=== PATIENT | male | born 1990 | race Caucasian/White ===

== ENCOUNTER 2017-03-11 08:17 | Inpatient (IN) | payer OTHER ==
[2017-03-11 09:57] VITALS: BMI 26.6
--- NOTE | 2017-03-11 11:26 | HP ---
COWS - Scale Resting Pulse: 0= [place] 80 or Below Sweatin= Chills/Flushing Restless Observation: 3= Extraneous Movement Pupil Size: 2= Moderately Dilated Bone or Joint Aches: 4=Acute Joint/Muscle Pain Runny Nose/ Eye Tearin= Runny Nose/Eyes GI Upset > 30mins: 2= Nausea/Diarrhea (NAUSEA/VOMITING) Tremor Observation: 2= Slight Tremor Visible Yawning Observation: 1= 1-2x During Session Anxiety or Irritability: 2=Irritable/Anxious Goose Flesh Skin: 0=Smooth Skin COWS Score: 19 CIWA Score - CIWA Score Nausea/Vomitin-Int. Nausea w/Dry Heave Muscle Tremors: 4-Moderate,w/Arms Extend Anxiety: 4-Mod. Anxious/Guarded Agitation: 3 Paroxysmal Sweats: 1-Minimal Palms Moist Orientation: 0-Oriented Tacttile Disturbances: 3-Moderate Itch/Numb/Burn Auditory Disturbances: 0-None Visual Disturbances: 0-None Headache: 0-None Present CIWA-Ar Total Score: 19 Admission [facility] Chief Complaint: DETOX TX FOR HEROIN,XANAX/KLONOPIN, AND ALCOHOL DEPENDENCE. Allergies/Adverse Reactions: Allergies Allergy/AdvReac Type Severity Reaction Status Date / Time No Known Allergies Allergy Verified 03/11/17 10:06 History of Present Illness: 26 Y/O MALE WITH A HX OF HEROIN,BENZOS,ALCOHOL DEPENDENCE AND SPORADIC USE OF COCAINE AND PCP SEEKING DETOX TX. PT HAS PREVIOUS EPISODES OF DRUG TREATMENT AND RECENTLY RELAPSED ABOUT A MONTH AGO AFTER INCARCERATED X ONE AND HALF YRS AND OUT LAST SEPTEMBER. ON PROBATION. Exam Limitations: No Limitations - Ebola screening Have you traveled outside of the country in the last 21 days: No Have you had contact with anyone from an Ebola affected area: No Have you been sick,other than usual withdrawal symptoms: No Do you have a fever: No - Review of Systems Constitutional: Chills, Loss of Appetite, Night Sweats, Changes in sleep EENT: reports: Blurred Vision, Tearing, Nose Congestion Respiratory: reports: Shortness of Breath, Wheezing Cardiac: reports: Lightheadedness GI: reports: Constipated, Diarrhea, Nausea, Poor Appetite, Vomiting, Indigestion , Abdominal cramping : reports: No Symptoms Reported Musculoskeletal: reports: Back Pain, Joint Pain, Muscle Pain Integumentary: reports: Bruising (RIGHT HAND WITH IVD INJ SITES) Neuro: reports: Headache, Tremors, Unsteady Gait, Dizziness Endocrine: reports: No Symptoms Reported Hematology: reports: No Symptoms Reported Psychiatric: reports: Orientated x3, Anxious, Depressed Other Systems: Reviewed and Negative Patient History - Patient Medical History Hx Anemia: No Hx Asthma: Yes (ON MDI) Hx Chronic Obstructive Pulmonary Disease (COPD): No Hx Cancer: No Hx Cardiac Disorders: No Hx Congestive Heart Failure: No Hx Hypertension: No Hx Hypercholesterolemia: No Hx Pacemaker: No HX Cerebrovascular Accident: No Hx Seizures: No Hx Dementia: No Hx Diabetes: No Hx Gastrointestinal Disorders: No Hx Liver Disease: No Hx Genitourinary Disorders: No Hx Sexually Transmitted Disorders: No Hx Renal Disease (ESRD): No Hx Thyroid Disease: No Hx Human Immunodeficiency Virus (HIV): No (NEGATIVE HX) Hx Hepatitis C: No (DENIES) Hx Depression: Yes (NO CURRENT MED) Hx Suicide Attempt: No Hx Bipolar Disorder: No Hx Schizophrenia: No - Patient Surgical History Past Surgical History: No Hx Neurologic Surgery: No Hx Cataract Extraction: No Hx Cardiac Surgery: No Hx Lung Surgery: No Hx Breast Surgery: No Hx Breast Biopsy: No Hx Abdominal Surgery: No Hx Appendectomy: No Hx Cholecystectomy: No Hx Genitourinary Surgery: No Hx Orthopedic Surgery: No Anesthesia Reaction: No - PPD History Previous Implant?: Yes Documented Results: Negative w/proof Implanted On Prior [facility] Admission?: Yes Date: 08/20/15 Results: 0 mm PPD to be Administered?: Yes - Reproductive History Patient is a Female of Child Bearing Age (11 -55 yrs old): No (MALE) - Smoking Cessation Smoking history: Current every day smoker Have you smoked in the past 12 months: Yes Aproximately how many cigarettes per day: 10 Cigars Per Day: 10 Hx Chewing Tobacco Use: No Initiated information on smoking cessation: Yes 'Breaking Loose' booklet given: 03/11/17 - Substance & Tx. History Hx Alcohol Use: Yes (BEER/VODKA) Hx Substance Use: Yes (KLONOPIN/XANAX/HEROIN/(SPORADIC COCAINE AND PCP USE)) Substance Use Type: Alcohol, Cocaine (USED 1-2 TMES RECENTLY.), Heroin, Tranquilizers Hx Substance Use Treatment: Yes (LAST DETOX AT [facility]) - Substances Abused Heroin Route: Injection Frequency: Daily Amount used: 25 bags Age of first use: 17 Date of Last Use: 03/10/17 Alcohol-beer/vodka Route: Oral Frequency: Daily Amount used: 1-6 pk./1 pt. Age of first use: 8 Date of Last Use: 03/10/17 Klonopin or Xanax Route: Oral Frequency: Daily Amount used: 2-4 mg/. Age of first use: 24 Date of Last Use: 03/10/17 PCP Route: Smoking Frequency: 3-6 times per week (2-3 X /WEEK) Amount used: 3 BAGS Age of first use: 15 Date of Last Use: 03/08/17 Family Disease History - Family Disease History Family Disease History: Heart Disease: Grandparent (BOTH SIDES-), Respiratory: Grandparent, Other: Grandparent, Father (HTN), Mother (PARKINSON'S DISEASE) Admission Physical Exam [facility] - Vital Signs Vital Signs: Vital Signs - 24 hr 03/11/17 09:53 Temperature 96.6 F L Pulse Rate 74 Respiratory 18 Rate Blood Pressure 143/91 - Physical General Appearance: Yes: Moderate Distress, Irritable, Anxious HEENTM: Yes: EOMI, Normocephalic, TEGAN, Pharynx Normal, Nasal Congestion, Rhinorrhea Respiratory: Yes: Chest Non-Tender, Lungs Clear, Normal Breath Sounds, No Respiratory Distress Neck: Yes: Supple, Trachea in good position Breast: Yes: Breast Exam Deferred Cardiology: Yes: Regular Rhythm, Regular Rate, S1, S2 Abdominal: Yes: Normal Bowel Sounds, Non Tender, Soft Genitourinary: Yes: Other (N/C) Back: Yes: Within Normal Limits Musculoskeletal: Yes: Joint swelling (SLIGHT SSWELLING LEFT KNEE. AROM- NO DIFFICULTY.) Extremities: Yes: Normal Range of Motion, Non-Tender, Tremors Neurological: Yes: hand heel seat fitter II-XII NML intact, Fully Oriented, Alert, Motor Strength 5/5 Integumentary: Yes: Dry, Warm, Track [place] (HEALED IVD INJ SITE ON RIGHT HAND) - Diagnostic (1) Nicotine dependence Current Visit: Yes Status: Acute Qualifiers: Nicotine product type: cigarettes Substance use status: in withdrawal Qualified Code(s): F17.213 - Nicotine dependence, cigarettes, with withdrawal (2) Opioid dependence with withdrawal Current Visit: Yes Status: Acute (3) PCP dependence Current Visit: Yes Status: Acute (4) Alcohol dependence with uncomplicated withdrawal Current Visit: Yes Status: Acute (5) Sedative, hypnotic or anxiolytic dependence with withdrawal, uncomplicated Current Visit: Yes Status: Acute (6) Cocaine abuse Current Visit: Yes Status: Acute (7) Asthma Current Visit: Yes Status: Chronic Qualifiers: Asthma complication type: uncomplicated Cleared for Admission S - Detox or Rehab [facility] Level of Care: Medically Managed Detox Regimen/Protocol: Methadone/Librium [facility] Breath Alcohol Content Breath Alcohol Content: 0 Urine Drug Screen - Results Drug Screen Negative: No Urine Drug Screen Results: ROC-Cocaine, OPI-Opiates, PCP-Phencyclidine, BZO- Benzodiazepines, OXY-Oxycodone
[2017-03-11] MEDS ORDERED: NICOTINE POLACRILEX 2 MG GUM BUC PRN (11:49)
[2017-03-11] MEDS ORDERED: P-EPHED 60MG/TRIPROLIDI 2.5MG TABLET PO PRN (11:49)
[2017-03-11] MEDS ORDERED: guaiFENesin/D-METHORPHAN HB 10 ML UNIT-DOSE CUPS PO PRN (11:49)
[2017-03-11] MEDS ORDERED: IBUPROFEN 400 MG TABLET (FP) PO PRN (11:49)
[2017-03-11] MEDS ORDERED: MAGNESIUM HYDROX 2400MG/30ML ORAL SUSPENSION 30 ML CUP PO PRN (11:49)
[2017-03-11] MEDS ORDERED: MAGNESIUM CITRATE 300 ML BOTTLE PO PRN (11:49)
[2017-03-11] MEDS ORDERED: MENTHOL/PHENOL 1 EACH UD MM PRN (11:49)
[2017-03-11] MEDS ORDERED: ACETAMINOPHEN 325 MG TABLET (FP) PO PRN (11:49)
[2017-03-11] MEDS ORDERED: LOPERAMIDE HCL 2 MG CAPSULE PO PRN (11:49)
[2017-03-11] MEDS ORDERED: MAG HYDROX/AL HYDROX/SIMETH 30 ML UNIT-DOSE CUP PO PRN (11:49)
[2017-03-11] MEDS ORDERED: METHADONE HCL 10 MG TABLET (FOR DETOX USE ONLY) PO ONE ×2 (12:18→23:00)
--- NOTE | 2017-03-11 12:34 | CONSULT ---
[facility] Psychiatric Consult - Data Date of interview: 03/11/17 Admission source: [facility] Identifying data: Readmission to [facility] for this 26 y/o male seeking detox treatment for alcohol,benzodiazepine,heroin,cocaine and phencyclidine dependence.Patient is single without children,domiciled and reportedly self-employed. Substance Abuse History: - Smoking Cessation. Smoking history: Current every day smoker. Have you smoked in the past 12 months: Yes. Aproximately how many cigarettes per day: 10. Cigars Per Day: 10. Hx Chewing Tobacco Use: No. Initiated information on smoking cessation: Yes. 'Breaking Loose' booklet given : 03/11/17. - Substance & Tx. History. Hx Alcohol Use: Yes (BEER/VODKA). Hx Substance Use: Yes (KLONOPIN/XANAX/HEROIN/(SPORADIC COCAINE AND PCP)). Substance Use Type: Alcohol, Cocaine (RECENTLY USED 1/5TH GRAM X 1 ON 03/10/17 "WITH THIS RELAPSE".), Heroin, Tranquilizers. Hx Substance Use Treatment: Yes ( LAST DETOX AT [facility]). - Substances Abused. Heroin. Route: Injection. Frequency: Daily. Amount used: 25 bags. Age of first use: 17. Date of Last Use: 03/10/17. Alcohol-beer/vodka. Route: Oral. Frequency: Daily. Amount used: 1-6 pk./1 pt. Age of first use: 8. Date of Last Use: 03/10/17. Klonopin or Xanax. Route: Oral. Frequency: Daily. Amount used: 2-4 mg/. Age of first use: 24. Date of Last Use: 03/10/17. PCP. Route: Smoking. Frequency: 3-6 times per week (2-3 X /WEEK). Amount used: 3 BAGS. Age of first use: 15. Date of Last Use: 03/08/17. Confirmed by patient. Medical History: Bronchial asthma. Psychiatric History: Patient denies. Physical/Sexual Abuse/Trauma History: Patient denies. Additional Comment: Urine Drug Screen Results: ROC-Cocaine, OPI-Opiates, PCP- Phencyclidine, BZO-Benzodiazepines, OXY-Oxycodone.Noted. Mental Status Exam - Mental Status Exam Alert and Oriented to: Time, Place, Person Cognitive Function: Good Patient Appearance: Well Groomed Mood: Hopeful, Euthymic Affect: Normal Range Patient Behavior: Fatigued, Appropriate, Cooperative Speech Pattern: Clear Voice Loudness: Normal Thought Process: Goal Oriented Thought Disorder: Not Present Hallucinations: Denies Suicidal Ideation: Denies Homicidal Ideation: Denies Insight/Judgement: Poor Sleep: Fair Appetite: Good Muscle strength/Tone: Normal Gait/Station: Normal Psychiatric Findings - Problem List ([place] 1, 2,3) (1) Alcohol dependence with uncomplicated withdrawal Current Visit: Yes Status: Acute (2) Opioid dependence with withdrawal Current Visit: Yes Status: Acute (3) Sedative, hypnotic or anxiolytic dependence with withdrawal, uncomplicated Current Visit: Yes Status: Acute (4) PCP dependence Current Visit: Yes Status: Acute (5) Nicotine dependence Current Visit: Yes Status: Acute Qualifiers: Nicotine product type: cigarettes Substance use status: in withdrawal Qualified Code(s): F17.213 - Nicotine dependence, cigarettes, with withdrawal (6) Cocaine abuse Current Visit: Yes Status: Acute (7) Asthma Current Visit: Yes Status: Chronic Qualifiers: Asthma complication type: uncomplicated (8) Insomnia Current Visit: Yes Status: Acute - Initial Treatment Plan Initial Treatment Plan: Psychoeducation.Detoxification is in progress.Insomnia is addressed with benadryl 50 mg po hs prn.Side effects/benefits discussed with the patient.He is in agreement with this plan of care.Observation.
[2017-03-11] MEDS: NICOTINE 14 MG/24 HOURS TOPICAL PATCH TD SCH (12:39)
[2017-03-11] MEDS: chlordiazePOXIDE HCL 25 MG CAPSULE PO PRN (12:40)
--- NOTE | 2017-03-11 14:10 | EKG ---
Test Reason : Blood Pressure : / mmHG Vent. Rate : 052 BPM Atrial Rate : 052 BPM P-R Int : 150 ms QRS Dur : 096 ms QT Int : 450 ms P-R-T Axes : 061 081 034 degrees QTc Int : 418 ms SINUS BRADYCARDIA RSR' OR QR PATTERN IN V1 SUGGESTS RIGHT VENTRICULAR CONDUCTION DELAY BORDERLINE ECG NO PREVIOUS ECGS AVAILABLE Confirmed by JERI PEDROZA MD ([id number]) on 03/11/2017 2:10:08 PM Referred By: Confirmed By:JERI PEDROZA MD
[2017-03-11] MEDS: chlordiazePOXIDE HCL 25 MG CAPSULE PO SCH ×2 (17:30→22:20)
[2017-03-11 17:32] LABS: URINE APPEARANCE SLCLOUDY; URINE BILIRUBIN NEGATIVE (NEGATIVE); URINE BLOOD NEGATIVE (NEGATIVE); URINE COLOR YELLOW; URINE GLUCOSE (UA) NEGATIVE (NEGATIVE); URINE KETONE NEGATIVE (NEGATIVE); URINE LEUK ESTERASE NEGATIVE (NEGATIVE); URINE NITRITE NEGATIVE (NEGATIVE); URINE PROTEIN NEGATIVE (NEGATIVE); URINE UROBILINOGEN NEGATIVE E.U./dl (0.2-1.0)
[2017-03-11] MEDS: THIAMINE HCL 100 MG TABLET (FP) PO SCH (22:20)
[2017-03-11] MEDS: diphenhydrAMINE HCL 50 MG CAPSULE PO PRN (22:20)
[2017-03-12] MEDS: chlordiazePOXIDE HCL 25 MG CAPSULE PO SCH ×4 (05:39→22:17)
[2017-03-12] MEDS ORDERED: METHADONE HCL 10 MG TABLET (FOR DETOX USE ONLY) PO SCH (10:00)
--- NOTE | 2017-03-12 10:20 | PN ---
[facility] CIWA - CIWA Score Nausea/Vomitin-Mild Nausea/No Vomiting Muscle Tremors: 4-Moderate,w/Arms Extend Anxiety: 4-Mod. Anxious/Guarded Agitation: 3 Paroxysmal Sweats: 3 Orientation: 0-Oriented Tacttile Disturbances: 0-None Auditory Disturbances: 0-None Visual Disturbances: 0-None Headache: 0-None Present CIWA-Ar Total Score: 15 [facility] COWS - Scale Resting Pulse: 0= [place] 80 or Below Sweatin=Flushed/Facial Moisture Restless Observation: 1= Difficult to Sit Still Pupil Size: 0= Normal to Room Light Bone or Joint Aches: 1= Mild Discomfort Runny Nose/ Eye Tearin= Runny Nose/Eyes GI Upset > 30mins: 2= Nausea/Diarrhea Tremor Observation of Outstretched Hands: 2= Slight Tremor Visible Yawning Observation: 1= 1-2x During Session Anxiety or Irritability: 2=Irritable/Anxious Goose Flesh Skin: 0=Smooth Skin COWS Score: 13 [facility] Progress Note (SOAP) Subjective: Nausea,tremors,anxiety,sweating,interrupted sleep,restless,muscle aches/spasm Objective: 03/12/17 10:19 Vital Signs - 8 hr 03/12/17 03/12/17 03/12/17 03:30 06:12 09:18 Temperature 96.1 F L 96.6 F L Pulse Rate 46 L 60 Respiratory 18 16 18 Rate Blood Pressure 116/80 112/62 Laboratory Last Values WBC Cancelled 03/12/17 06:00 Corrected WBC (auto) Cancelled 03/12/17 06:00 RBC Cancelled 03/12/17 06:00 Hgb Cancelled 03/12/17 06:00 Hct Cancelled 03/12/17 06:00 MCV Cancelled 03/12/17 06:00 MCHC Cancelled 03/12/17 06:00 RDW Cancelled 03/12/17 06:00 Plt Count Cancelled 03/12/17 06:00 MPV Cancelled 03/12/17 06:00 Differential Comment Cancelled 03/12/17 06:00 Platelet Estimate Cancelled 03/12/17 06:00 Platelet Comment Cancelled 03/12/17 06:00 Platelet Comment Cancelled 03/12/17 06:00 RBC Morphology Cancelled 03/12/17 06:00 Urine Color Yellow 03/11/17 15:00 Urine Appearance Slcloudy 03/11/17 15:00 Urine pH 7.0 (5.0-8.0) 03/11/17 15:00 Ur Specific [place] 1.020 (1.005-1.025) 03/11/17 15:00 Urine Protein Negative (NEGATIVE) 03/11/17 15:00 Urine Glucose (UA) Negative (NEGATIVE) 03/11/17 15:00 Urine Ketones Negative (NEGATIVE) 03/11/17 15:00 Urine Blood Negative (NEGATIVE) 03/11/17 15:00 Urine Nitrite Negative (NEGATIVE) 03/11/17 15:00 Urine Bilirubin Negative (NEGATIVE) 03/11/17 15:00 Urine Urobilinogen Negative E.U./dl (0.2-1.0) 03/11/17 15:00 Ur Leukocyte Esterase Negative (NEGATIVE) 03/11/17 15:00 u/a noted Assessment: 03/12/17 10:20 Withdrawal sx. Plan: Continue detox
[2017-03-12] MEDS: NICOTINE 14 MG/24 HOURS TOPICAL PATCH TD SCH (10:31)
[2017-03-12] MEDS: PRENATAL VITAMINS W/ FOLIC ACID TABLET (FP) PO SCH (10:32)
[2017-03-12 11:02] LABS: ALK PHOS 72 U/L (45-117); ANION GAP 12 (8-16); BILIRUBIN,TOTAL 0.6 mg/dL (0.2-1.0); CO2 25 mmol/L (21-32); COCKROFT - GAULT 133.27; CREATININE 0.9 mg/dL (0.7-1.3); GLUCOSE,RANDOM 120 mg/dL (74-106); SGOT/AST 27 U/L (15-37); SGPT/ALT 27 U/L (12-78); TOT PROT 7.1 g/dl (6.4-8.2)
[2017-03-12 12:10] LABS: HIV 1 & 2 AB NEGATIVE; HIV 1 AGp24 NEGATIVE
[2017-03-12] MEDS: chlordiazePOXIDE HCL 25 MG CAPSULE PO PRN (14:45)
[2017-03-12] MEDS: THIAMINE HCL 100 MG TABLET (FP) PO SCH (22:17)
[2017-03-12] MEDS: diphenhydrAMINE HCL 50 MG CAPSULE PO PRN (22:17)
[2017-03-13] MEDS: chlordiazePOXIDE HCL 25 MG CAPSULE PO SCH ×2 (05:55→10:24)
[2017-03-13 09:58] LABS: BASOPHIL 0.6 % (0-2.0); EOSINOPHIL 5.5 % (0-4.5); MCHC 34.2 g/dl (32.0-35.9); NEUTROPHILS 53.7 % (42.8-82.8); PLATELET COUNT 214 K/MM3 (134-434); RDW 12.3 % (11.9-15.9); WHITE BLOOD COUNT 6.2 K/mm3 (4.0-10.0)
[2017-03-13] MEDS: PRENATAL VITAMINS W/ FOLIC ACID TABLET (FP) PO SCH (10:24)
[2017-03-13] MEDS: METHADONE HCL 5 MG TABLET (FOR DETOX USE ONLY) PO SCH (10:24)
[2017-03-13] MEDS: NICOTINE 14 MG/24 HOURS TOPICAL PATCH TD SCH (10:24)
--- NOTE | 2017-03-13 12:00 | PN ---
[facility] CIWA - CIWA Score Nausea/Vomitin-Mild Nausea/No Vomiting Muscle Tremors: 2 Anxiety: 0-No Anxiety, at Ease Agitation: 1-Slight > Activity Paroxysmal Sweats: 3 Orientation: 0-Oriented Tacttile Disturbances: 3-Moderate Itch/Numb/Burn Auditory Disturbances: 2-Mild Harshness/Frighten Visual Disturbances: 3-Moderate Sensitivity Headache: 0-None Present CIWA-Ar Total Score: 15 [facility] Progress Note (SOAP) Subjective: Diarrhea, Interrupted sleep, Chills, Sweating, Tremors, Lower Back Ache. Objective: PT. A & OX 3. NO ACUTE DISTRESS. 03/13/17 11:57 Vital Signs Temperature 97.6 F 03/13/17 09:21 Pulse Rate 69 03/13/17 09:21 Respiratory Rate 18 03/13/17 09:21 Blood Pressure 130/78 03/13/17 09:21 O2 Sat by Pulse Oximetry (%) Laboratory Tests 03/11/17 03/11/17 03/12/17 06:00 15:00 06:00 WBC Cancelled Corrected WBC (auto) Cancelled RBC Cancelled Hgb Cancelled Hct Cancelled MCV Cancelled MCHC Cancelled RDW Cancelled Plt Count Cancelled MPV Cancelled Neutrophils % Lymphocytes % Monocytes % Eosinophils % Basophils % Differential Comment Cancelled Platelet Estimate Cancelled Platelet Comment Cancelled RBC Morphology Cancelled Sodium Potassium Chloride Carbon Dioxide Anion Gap BUN Creatinine Creat Clearance w eGFR Random Glucose Calcium Total Bilirubin AST ALT Alkaline Phosphatase Total Protein Albumin Urine Color Yellow Urine Appearance Slcloudy Urine pH 7.0 Ur Specific [place] 1.020 Urine Protein Negative Urine Glucose (UA) Negative Urine Ketones Negative Urine Blood Negative Urine Nitrite Negative Urine Bilirubin Negative Urine Urobilinogen Negative Ur Leukocyte Esterase Negative RPR Titer HIV 1&2 Antibody Screen Negative HIV P24 Antigen Negative 03/12/17 03/12/17 03/13/17 06:00 06:00 07:00 WBC 6.2 Corrected WBC (auto) RBC 4.58 Hgb 13.3 Hct 38.9 MCV 85.0 MCHC 34.2 RDW 12.3 Plt Count 214 MPV 7.0 L Neutrophils % 53.7 Lymphocytes % 30.3 Monocytes % 9.9 Eosinophils % 5.5 H Basophils % 0.6 Differential Comment Platelet Estimate Platelet Comment RBC Morphology Sodium 141 Potassium 3.8 Chloride 104 Carbon Dioxide 25 Anion Gap 12 BUN 19 H D Creatinine 0.9 D Creat Clearance w eGFR > 60 Random Glucose 120 H D Calcium 9.0 Total Bilirubin 0.6 AST 27 D ALT 27 D Alkaline Phosphatase 72 Total Protein 7.1 Albumin 4.0 Urine Color Urine Appearance Urine pH Ur Specific [place] Urine Protein Urine Glucose (UA) Urine Ketones Urine Blood Urine Nitrite Urine Bilirubin Urine Urobilinogen Ur Leukocyte Esterase RPR Titer Nonreactive HIV 1&2 Antibody Screen HIV P24 Antigen LABS NOTED. Assessment: 03/13/17 11:58 WITHDRAWAL SYMPTOMS. Plan: CONTINUE DETOX.
[2017-03-13] MEDS: chlordiazePOXIDE HCL 25 MG CAPSULE PO PRN (13:06)
[2017-03-13] MEDS: chlordiazePOXIDE 5 MG CAPSULE PO SCH ×2 (17:02→22:22)
[2017-03-13] MEDS: THIAMINE HCL 100 MG TABLET (FP) PO SCH (22:22)
[2017-03-13] MEDS: diphenhydrAMINE HCL 50 MG CAPSULE PO PRN (22:22)
[2017-03-14] MEDS: chlordiazePOXIDE 5 MG CAPSULE PO SCH ×2 (05:43→10:23)
[2017-03-14] MEDS: METHADONE HCL 5 MG TABLET (FOR DETOX USE ONLY) PO SCH (10:23)
[2017-03-14] MEDS: PRENATAL VITAMINS W/ FOLIC ACID TABLET (FP) PO SCH (10:23)
[2017-03-14] MEDS: NICOTINE 14 MG/24 HOURS TOPICAL PATCH TD SCH (10:26)
--- NOTE | 2017-03-14 14:30 | PN ---
S Progress Note (SOAP) Subjective: Vomiting, Tremors, Diarrhea, Lower Back ache, Chills, Sweating, Body Aches. Objective: PT. A & O X 3. NO ACUTE DISTRESS. 03/14/17 14:28 Vital Signs Temperature 96.8 F L 03/14/17 13:12 Pulse Rate 71 03/14/17 13:12 Respiratory Rate 18 03/14/17 13:12 Blood Pressure 127/77 03/14/17 13:12 O2 Sat by Pulse Oximetry (%) Laboratory Tests 03/11/17 03/11/17 03/12/17 06:00 15:00 06:00 WBC Cancelled Corrected WBC (auto) Cancelled RBC Cancelled Hgb Cancelled Hct Cancelled MCV Cancelled MCHC Cancelled RDW Cancelled Plt Count Cancelled MPV Cancelled Neutrophils % Lymphocytes % Monocytes % Eosinophils % Basophils % Differential Comment Cancelled Platelet Estimate Cancelled Platelet Comment Cancelled RBC Morphology Cancelled Sodium Potassium Chloride Carbon Dioxide Anion Gap BUN Creatinine Creat Clearance w eGFR Random Glucose Calcium Total Bilirubin AST ALT Alkaline Phosphatase Total Protein Albumin Urine Color Yellow Urine Appearance Slcloudy Urine pH 7.0 Ur Specific [place] 1.020 Urine Protein Negative Urine Glucose (UA) Negative Urine Ketones Negative Urine Blood Negative Urine Nitrite Negative Urine Bilirubin Negative Urine Urobilinogen Negative Ur Leukocyte Esterase Negative RPR Titer HIV 1&2 Antibody Screen Negative HIV P24 Antigen Negative 03/12/17 03/12/17 03/13/17 06:00 06:00 07:00 WBC 6.2 Corrected WBC (auto) RBC 4.58 Hgb 13.3 Hct 38.9 MCV 85.0 MCHC 34.2 RDW 12.3 Plt Count 214 MPV 7.0 L Neutrophils % 53.7 Lymphocytes % 30.3 Monocytes % 9.9 Eosinophils % 5.5 H Basophils % 0.6 Differential Comment Platelet Estimate Platelet Comment RBC Morphology Sodium 141 Potassium 3.8 Chloride 104 Carbon Dioxide 25 Anion Gap 12 BUN 19 H D Creatinine 0.9 D Creat Clearance w eGFR > 60 Random Glucose 120 H D Calcium 9.0 Total Bilirubin 0.6 AST 27 D ALT 27 D Alkaline Phosphatase 72 Total Protein 7.1 Albumin 4.0 Urine Color Urine Appearance Urine pH Ur Specific [place] Urine Protein Urine Glucose (UA) Urine Ketones Urine Blood Urine Nitrite Urine Bilirubin Urine Urobilinogen Ur Leukocyte Esterase RPR Titer Nonreactive HIV 1&2 Antibody Screen HIV P24 Antigen LABS NOTED. Assessment: 03/14/17 14:29 WITHDRAWAL SYMPTOMS. Plan: CONTINUE DETOX.
--- NOTE | 2017-03-14 15:19 | PN ---
[facility] Progress Note Note: Received report that patient hit head (forehead / frontal area) on edge of nightstand while trying to pick something up from floor. Patient denies LOC and he denies falling to floor after incident. Patient denies injury to any other part of body other than forehead. Upon inspection, mild erythema and swelling noted on right side of patient's head. No bleeding or discharge noted at affected site. Patient A & O X 3. YUNIER. VS: BP: 104/70; P: 65: O2: 95%; T: 97.5 ; RR: 18. [facility] FALL PROTOCOL # 1 IMPLEMENTED. Patient sent to [facility] via ambulance for further evaluation. Report given to Ame Mack NP at [facility].
[2017-03-14] MEDS: chlordiazePOXIDE HCL 10 MG CAPSULE PO SCH ×2 (18:22→22:21)
[2017-03-14] MEDS ORDERED: CYCLOBENZAPRINE HCL 10 MG TABLET (FP) PO ONE (19:17)
[2017-03-14] MEDS: diphenhydrAMINE HCL 50 MG CAPSULE PO PRN (22:21)
[2017-03-14] MEDS: THIAMINE HCL 100 MG TABLET (FP) PO SCH (22:21)
[2017-03-15] MEDS: chlordiazePOXIDE HCL 10 MG CAPSULE PO SCH ×2 (05:18→10:12)
[2017-03-15 09:44] VITALS: BP 123/82; PULSE 67; TEMP 97.1
[2017-03-15] MEDS ORDERED: METHADONE HCL 10 MG TABLET (FOR DETOX USE ONLY) PO SCH (10:00)
[2017-03-15] MEDS: PRENATAL VITAMINS W/ FOLIC ACID TABLET (FP) PO SCH (10:11)
[2017-03-15] MEDS: NICOTINE 14 MG/24 HOURS TOPICAL PATCH TD SCH (10:12)
--- NOTE | 2017-03-15 12:04 | PN ---
S Progress Note (SOAP) Subjective: Tremors only Detox symptom reported by patient today. Objective: PT. A & O X 3, OBSERVED AMBULATING ON UNIT. NO ACUTE DISTRESS. PATIENT DENIES ANY CURRENT DISCOMFORT IN HEAD, INCLUDING AREA AFFECTED BY YESTERDAY'S INJURY. NO SWELLING, BLEEDING OR UNUSUAL DISCHARGE NOTED AT AFFECTED AREA ON HEAD ( FOREHEAD). 03/15/17 12:00 Vital Signs Temperature 97.1 F L 03/15/17 09:43 Pulse Rate 67 03/15/17 09:43 Respiratory Rate 20 03/15/17 09:43 Blood Pressure 123/82 03/15/17 09:43 O2 Sat by Pulse Oximetry (%) Laboratory Tests 03/11/17 03/11/17 03/12/17 06:00 15:00 06:00 WBC Cancelled Corrected WBC (auto) Cancelled RBC Cancelled Hgb Cancelled Hct Cancelled MCV Cancelled MCHC Cancelled RDW Cancelled Plt Count Cancelled MPV Cancelled Neutrophils % Lymphocytes % Monocytes % Eosinophils % Basophils % Differential Comment Cancelled Platelet Estimate Cancelled Platelet Comment Cancelled RBC Morphology Cancelled Sodium Potassium Chloride Carbon Dioxide Anion Gap BUN Creatinine Creat Clearance w eGFR Random Glucose Calcium Total Bilirubin AST ALT Alkaline Phosphatase Total Protein Albumin Urine Color Yellow Urine Appearance Slcloudy Urine pH 7.0 Ur Specific [place] 1.020 Urine Protein Negative Urine Glucose (UA) Negative Urine Ketones Negative Urine Blood Negative Urine Nitrite Negative Urine Bilirubin Negative Urine Urobilinogen Negative Ur Leukocyte Esterase Negative RPR Titer HIV 1&2 Antibody Screen Negative HIV P24 Antigen Negative 03/12/17 03/12/17 03/13/17 06:00 06:00 07:00 WBC 6.2 Corrected WBC (auto) RBC 4.58 Hgb 13.3 Hct 38.9 MCV 85.0 MCHC 34.2 RDW 12.3 Plt Count 214 MPV 7.0 L Neutrophils % 53.7 Lymphocytes % 30.3 Monocytes % 9.9 Eosinophils % 5.5 H Basophils % 0.6 Differential Comment Platelet Estimate Platelet Comment RBC Morphology Sodium 141 Potassium 3.8 Chloride 104 Carbon Dioxide 25 Anion Gap 12 BUN 19 H D Creatinine 0.9 D Creat Clearance w eGFR > 60 Random Glucose 120 H D Calcium 9.0 Total Bilirubin 0.6 AST 27 D ALT 27 D Alkaline Phosphatase 72 Total Protein 7.1 Albumin 4.0 Urine Color Urine Appearance Urine pH Ur Specific [place] Urine Protein Urine Glucose (UA) Urine Ketones Urine Blood Urine Nitrite Urine Bilirubin Urine Urobilinogen Ur Leukocyte Esterase RPR Titer Nonreactive HIV 1&2 Antibody Screen HIV P24 Antigen LABS NOTED. Assessment: 03/15/17 12:02 WITHDRAWAL SYMPTOMS. Plan: CONTINUE DETOX. ICE PACK INTERMITTENTLY TO BE APPLIED TO AREA ON HEAD AFFECTED BY INJURY YESTERDAY. ADVISED PATIENT TO FOLLOW-UP WITH [facility] AFTER DISCHARGE FROM DETOX FOR GENERAL MEDICAL ASSESSMENT AND FOR FOLLOW-UP FOR HEAD INJURY.
--- NOTE | 2017-03-15 15:45 | DS ---
[facility] Detox Discharge Summary Admission Date: 03/11/17 Discharge Date: 03/15/17 - History Present History: Alcohol Dependence, Cocaine Dependence, Opioid Dependence, Sedative Dependence, Pcp Dependence Additional Comments: ADVISED PATIENT TO FOLLOW-UP WITH [facility] FOR GENERAL MEDICAL ASSESSMENT. Pertinent Past History: Hepatitis C, Depression, Asthma. - Physical Exam Results Vital Signs: Vital Signs Temperature 97.1 F L 03/15/17 09:43 Pulse Rate 67 03/15/17 09:43 Respiratory Rate 20 03/15/17 09:43 Blood Pressure 123/82 03/15/17 09:43 O2 Sat by Pulse Oximetry (%) Pertinent Admission Physical Exam Findings: WITHDRAWAL SYMPTOMS. Laboratory Tests 03/11/17 03/11/17 03/12/17 06:00 15:00 06:00 WBC Cancelled Corrected WBC (auto) Cancelled RBC Cancelled Hgb Cancelled Hct Cancelled MCV Cancelled MCHC Cancelled RDW Cancelled Plt Count Cancelled MPV Cancelled Neutrophils % Lymphocytes % Monocytes % Eosinophils % Basophils % Differential Comment Cancelled Platelet Estimate Cancelled Platelet Comment Cancelled RBC Morphology Cancelled Sodium Potassium Chloride Carbon Dioxide Anion Gap BUN Creatinine Creat Clearance w eGFR Random Glucose Calcium Total Bilirubin AST ALT Alkaline Phosphatase Total Protein Albumin Urine Color Yellow Urine Appearance Slcloudy Urine pH 7.0 Ur Specific [place] 1.020 Urine Protein Negative Urine Glucose (UA) Negative Urine Ketones Negative Urine Blood Negative Urine Nitrite Negative Urine Bilirubin Negative Urine Urobilinogen Negative Ur Leukocyte Esterase Negative RPR Titer HIV 1&2 Antibody Screen Negative HIV P24 Antigen Negative 03/12/17 03/12/17 03/13/17 06:00 06:00 07:00 WBC 6.2 Corrected WBC (auto) RBC 4.58 Hgb 13.3 Hct 38.9 MCV 85.0 MCHC 34.2 RDW 12.3 Plt Count 214 MPV 7.0 L Neutrophils % 53.7 Lymphocytes % 30.3 Monocytes % 9.9 Eosinophils % 5.5 H Basophils % 0.6 Differential Comment Platelet Estimate Platelet Comment RBC Morphology Sodium 141 Potassium 3.8 Chloride 104 Carbon Dioxide 25 Anion Gap 12 BUN 19 H D Creatinine 0.9 D Creat Clearance w eGFR > 60 Random Glucose 120 H D Calcium 9.0 Total Bilirubin 0.6 AST 27 D ALT 27 D Alkaline Phosphatase 72 Total Protein 7.1 Albumin 4.0 Urine Color Urine Appearance Urine pH Ur Specific [place] Urine Protein Urine Glucose (UA) Urine Ketones Urine Blood Urine Nitrite Urine Bilirubin Urine Urobilinogen Ur Leukocyte Esterase RPR Titer Nonreactive HIV 1&2 Antibody Screen HIV P24 Antigen LABS NOTED. - Medication Discharge Medications: Ambulatory Orders NK [No Known Home Medication] 03/11/17 - Diagnosis (1) Alcohol dependence with uncomplicated withdrawal Status: Acute (2) Cocaine abuse Status: Acute (3) Forehead trauma Status: Acute Qualifiers: Encounter type: initial encounter Qualified Code(s): S09.93XA - Unspecified injury of face, initial encounter (4) Insomnia Status: Acute Qualifiers: Insomnia type: unspecified Qualified Code(s): G47.00 - Insomnia, unspecified (5) Nicotine dependence Status: Chronic Qualifiers: Nicotine product type: cigarettes Substance use status: in withdrawal Qualified Code(s): F17.213 - Nicotine dependence, cigarettes, with withdrawal (6) Opioid dependence with withdrawal Status: Acute (7) PCP dependence Status: Acute (8) Sedative, hypnotic or anxiolytic dependence with withdrawal, uncomplicated Status: Acute (9) Asthma Status: Chronic Qualifiers: Asthma severity: mild intermittent Asthma complication type: uncomplicated Qualified Code(s): J45.20 - Mild intermittent asthma, uncomplicated - AMA Did Patient Leave Against Medical Advice: Yes (PT. HAD PERSONAL ISSUE AND DID NOT WISH TO STAY TO COMPLETE DETOX REGIMEN.)
[2017-03-16] MEDS ORDERED: METHADONE HCL 5 MG TABLET (FOR DETOX USE ONLY) PO SCH (06:00)
== END 2017-03-15 13:04 | disposition left against medical advice (07) | DRG 770 ==
LOC: YASAS 08:17 → Y3N 11:19
PROVIDERS: ADMIT Internal Medicine; ATTEND Internal Medicine
PROC: HZ2ZZZZ Detoxification Services for Substance Abuse Treatment (ICD-10-PCS; principal; 2017-03-11)
DX: F11.23 Opioid dependence with withdrawal (principal); F13.230 Sedative, hypnotic or anxiolytic dependence with withdrawal, uncomplicated; F10.230 Alcohol dependence with withdrawal, uncomplicated; F16.20 Hallucinogen dependence, uncomplicated; F14.10 Cocaine abuse, uncomplicated; F17.213 Nicotine dependence, cigarettes, with withdrawal; G47.00 Insomnia, unspecified; J45.20 Mild intermittent asthma, uncomplicated; S09.93XA Unspecified injury of face, initial encounter; W22.03XA Walked into furniture, initial encounter; Y93.89 Activity, other specified; Y92.230 Patient room in hospital as the place of occurrence of the external cause
CPT/HCPCS: 36415; 80053; 81003; 85025; 86593; 87389; 93005; 93010

== ENCOUNTER 2017-03-14 16:01 | Emergency (ER) | payer OTHER ==
[2017-03-14 16:23] VITALS: BP 126/80; PULSE 60; TEMP 98.6; BMI 26.6
--- NOTE | 2017-03-14 17:34 | PDOC ---
History of Present Illness - General Stated Complaint: INJURY Time Seen by Provider: 03/14/17 17:24 History Source: Patient Exam Limitations: No Limitations - History of Present Illness Initial Comments: 03/14/17 17:28 26 yr male sent from [address] [place] [address] rehab for bump on forehead. 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 no loc, neg nvd neg headache. no history of blood thinners. Severity: Yes: mild Associated Symptoms: reports: denies symptoms Past History - Past Medical History Allergies/Adverse Reactions: Allergies Allergy/AdvReac Type Severity Reaction Status Date / Time No Known Allergies Allergy Verified 03/11/17 10:06 Home Medications: Ambulatory Orders NK [No Known Home Medication] 03/11/17 Anemia: No Asthma: Yes (ON MDI) Cancer: No Cardiac Disorders: No CVA: No COPD: No CHF: No Dementia: No Diabetes: No GI Disorders: No Disorders: No HTN: No Hypercholesterolemia: No Kidney Stones: No Liver Disease: No Suicide Attempt (Hx): No Seizures: No Thyroid Disease: No - Surgical History Abdominal Surgery: No Appendectomy: No Cardiac Surgery: No Cholecystectomy: No Lung Surgery: No Neurologic Surgery: No Orthopedic Surgery: No - Reproductive History Testicular Surgery: No - Psycho/Social/Smoking Cessation Hx Anxiety: Yes Suicidal Ideation: No Smoking History: Current every day smoker Have you smoked in the past 12 months: Yes Number of Cigarettes Smoked Daily: 10 Cigars Per Day: 10 Information on smoking cessation initiated: No 'Breaking Loose' booklet given: 03/11/17 Hx Alcohol Use: No Drug/Substance Use Hx: Yes Substance Use Type: Alcohol, Cocaine, Heroin, Tranquilizers Hx Substance Use Treatment: Yes (LAST DETOX AT [facility]) Neuro Specific PMHX - Complaint Specific PMHX Glaucoma: No Herniated Disk: No Laminectomy: No Migraine: No Multiple Sclerosis: No Neuropathy: No TIA: No Review of Systems - Review of Systems Able to Perform ROS?: Yes Is the patient limited Italian proficient: No Constitutional: No: Symptoms Reported HEENTM: No: Symptoms Reported Respiratory: No: Symptoms reported Cardiac (ROS): No: Symptoms Reported, Lightheadedness ABD/GI: No: Symptoms Reported : No: Symptoms Reported Musculoskeletal: No: Symptoms Reported Integumentary: No: Symptoms Reported Neurological: No: Symptoms reported, See HPI Endocrine: No: Symptoms Reported Hematologic/Lymphatic: No: Symptoms Reported *Physical Exam - Vital Signs Last Vital Signs Temp Pulse Resp BP Pulse Ox 98.6 F 60 20 126/80 99 03/14/17 16:19 03/14/17 16:19 03/14/17 16:19 03/14/17 16:19 03/14/17 16:19 - Physical Exam General Appearance: Yes: Nourished, Appropriately Dressed HEENT: positive: EOMI, TEGAN Neck: positive: Supple. negative: Tender Respiratory/Chest: positive: Lungs Clear, Normal Breath Sounds. negative: Chest Tender Cardiovascular: positive: Regular Rhythm, Regular Rate Musculoskeletal: positive: Normal Inspection Extremity: positive: Normal Capillary Refill, Normal Inspection, Normal Range of Motion Integumentary: positive: Normal Color, Dry, Warm, Other (right side forehead with superficial red hernán approximately 1cm , neg bony tenderness, neg bruising) . negative: Swelling, Ecchymosis, Bruising Neurologic: positive: Fully Oriented, Alert, Normal Mood/Affect, Normal Response , Motor Strength 5/5, Finger to Nose (intact ) ED Treatment Course - RADIOLOGY Radiology Studies Ordered: Category Date Time Status HEAD CT WITHOUT CONTRAST [CT] Stat CT Scan 03/14/17 17:24 Stop Req Medical Decision Making - Medical Decision Making 03/14/17 17:32 cc: forehead trauma no loc no headache pt refused cat scan pt has no neck pain no vision changes or other complaints. will have EMS bring pt back to [facility] as per policy pt aware to wait for EMS in the waiting room. spoke with staff at [address] [place] [address] they are aware pt is planning to return to the rehab. 03/14/17 18:46 pt has decided to go outside and smoke. 03/15/17 08:39 *DC/Admit/Observation/Transfer Diagnosis at time of Disposition: Forehead trauma Qualifiers: Encounter type: initial encounter Qualified Code(s): S09.93XA - Unspecified injury of face, initial encounter - Discharge Dispostion Disposition: TRANSFER ACUTE CARE/OTHER HOSP Condition at time of disposition: Stable - Referrals Referrals: Alice Nuñez MD [Primary Care Provider] - - Patient Instructions Printed Discharge Instructions: DI for Closed Head Injury Additional Instructions: any changes in condition return to ER such as vomiting, severe pain, vision changes or any other concerns you can place ice every 2hrs to the area of pain for 20 minutes
== END 2017-03-14 18:52 | disposition other institution (70) ==
LOC: JER 16:01 → JERFT 16:01
DX: S00.83XA Contusion of other part of head, initial encounter (principal); W22.09XA Striking against other stationary object, initial encounter; Y93.89 Activity, other specified; Y92.230 Patient room in hospital as the place of occurrence of the external cause; J45.909 Unspecified asthma, uncomplicated; F17.210 Nicotine dependence, cigarettes, uncomplicated; F10.10 Alcohol abuse, uncomplicated; F14.10 Cocaine abuse, uncomplicated; F11.10 Opioid abuse, uncomplicated
CPT/HCPCS: 99281-25

== ENCOUNTER 2018-08-01 13:40 | Inpatient (IN) | payer OTHER ==
[2018-08-01 15:20] VITALS: BMI 25.7
--- NOTE | 2018-08-01 19:51 | HP ---
COWS - Scale Resting Pulse: 1= [place] 81-100 Sweatin= Chills/Flushing Restless Observation: 0= Sits Still Pupil Size: 1= Pupils >than Normal Bone or Joint Aches: 2= Severe Diffuse Aches Runny Nose/ Eye Tearin= Nasal Congestion GI Upset > 30mins: 1= Stomach Cramp Tremor Observation: 0= None Yawning Observation: 1= 1-2x During Session Anxiety or Irritability: 1=Feels Anxious/Irritable Goose Flesh Skin: 3=Piloerection COWS Score: 12 CIWA Score - CIWA Score Nausea/Vomitin-Mild Nausea/No Vomiting Muscle Tremors: 1-None Visible, but [place] Anxiety: 7-Acute Panic/Severe Agitation: 1-Slight > Activity Paroxysmal Sweats: 1-Minimal Palms Moist Orientation: 0-Oriented Tacttile Disturbances: 0-None Auditory Disturbances: 1-Very Mild Visual Disturbances: 1-Very Mild Sensitivity Headache: 1-Very Mild CIWA-Ar Total Score: [address] [facility] Chief Complaint: WITHDRAWAL SYMPTOMS Allergies/Adverse Reactions: Allergies Allergy/AdvReac Type Severity Reaction Status Date / Time No Known Allergies Allergy Verified 03/11/17 10:06 History of Present Illness: 28 Y.O. MAN WITH A HISTORY OF HEROIN AND XANAX DEPENDENCE IS HERE SEEKING DETOX SERVICES. HE REPORTS HIS LAST DETOX WAS HERE FROM 03/11/17-03/15/17. w Patient Name: germaine Jaime w Date: w 1990 w Address: [place] [address] w Sex: w Male Patient Name: Florentino Jaime Date: 1990 Address: [address] [place] [address] Sex: Male Rx Written Rx Dispensed Drug Quantity Days Supply Prescriber Name w 07/29/2018 w 07/30/2018 w buprenorphine-naloxone 8-2 mg sl tablet w 60 w 30 w Devyn Duncan 07/08/2018 l 07/08/2018 l buprenorphine-naloxone 8-2 mg sl tablet l 42 l 21 l Devyn Duncan w 06/05/2018 w 06/13/2018 w suboxone 8 mg-2 mg sl film w 45 w 23 w Devyn Duncan l 05/22/2018 l 05/25/2018 l suboxone 8 mg-2 mg sl film l 30 l 30 l Ricki Venegas MD w 04/17/2018 w 04/22/2018 w suboxone 8 mg-2 mg sl film w 60 w 30 w Devyn Duncan 03/13/2018 l 03/22/2018 l suboxone 8 mg-2 mg sl film l 60 l 30 l Devyn Duncan w 02/11/2018 w 02/16/2018 w suboxone 8 mg-2 mg sl film w 60 w 30 w Ricki Venegas MD l 01/14/2018 l 01/15/2018 l suboxone 8 mg-2 mg sl film l 60 l 30 l Ricki Venegas MD w 12/02/2017 w 12/02/2017 w suboxone 8 mg-2 mg sl film w 60 w 30 w Devyn Duncan Exam Limitations: No Limitations - Ebola screening Have you traveled outside of the country in the last 21 days: No Have you had contact with anyone from an Ebola affected area: No Have you been sick,other than usual withdrawal symptoms: No Do you have a fever: No - Review of Systems Constitutional: Chills, Diaphoresis, Night Sweats, Changes in sleep EENT: reports: Tearing, Nose Congestion Respiratory: reports: No Symptoms reported Cardiac: reports: No Symptoms Reported GI: reports: Nausea : reports: No Symptoms Reported Musculoskeletal: reports: Back Pain, Neck Pain Integumentary: reports: No Symptoms Reported Neuro: reports: Headache Endocrine: reports: No Symptoms Reported Hematology: reports: No Symptoms Reported Psychiatric: reports: Agitated, Anxious, Depressed Other Systems: Reviewed and Negative Patient History - Patient Medical History Hx Anemia: No Hx Asthma: Yes (ON MDI) Hx Chronic Obstructive Pulmonary Disease (COPD): No Hx Cancer: No Hx Cardiac Disorders: No Hx Congestive Heart Failure: No Hx Hypertension: No Hx Hypercholesterolemia: No Hx Pacemaker: No HX Cerebrovascular Accident: No Hx Seizures: No Hx Dementia: No Hx Diabetes: No Hx Gastrointestinal Disorders: No Hx Liver Disease: No Hx Genitourinary Disorders: No Hx Sexually Transmitted Disorders: No Hx Renal Disease (ESRD): No Hx Thyroid Disease: No Hx Human Immunodeficiency Virus (HIV): No (NEGATIVE HX) Hx Hepatitis C: No (DENIES) Hx Depression: No Hx Suicide Attempt: No Hx Bipolar Disorder: No Hx Schizophrenia: No - Patient Surgical History Past Surgical History: No Hx Neurologic Surgery: No Hx Cataract Extraction: No Hx Cardiac Surgery: No Hx Lung Surgery: No Hx Breast Surgery: No Hx Breast Biopsy: No Hx Abdominal Surgery: No Hx Appendectomy: No Hx Cholecystectomy: No Hx Genitourinary Surgery: No Hx Section: No Hx Orthopedic Surgery: No Anesthesia Reaction: No - PPD History Previous Implant?: Yes Documented Results: Negative w/proof Implanted On Prior R Admission?: Yes Date: 03/13/17 Results: neg PPD to be Administered?: Yes - Reproductive History Patient is a Female of Child Bearing Age (11 -55 yrs old): No - Smoking Cessation Smoking history: Current every day smoker Have you smoked in the past 12 months: Yes Aproximately how many cigarettes per day: 10 Cigars Per Day: 10 Hx Chewing Tobacco Use: No Initiated information on smoking cessation: Yes 'Breaking Loose' booklet given: 08/01/18 - Substance & Tx. History Hx Alcohol Use: No Hx Substance Use: Yes Substance Use Type: Heroin, Tranquilizers Hx Substance Use Treatment: Yes (Detox: 02/2017) - Substances Abused Heroin Route: Injection Frequency: Daily Amount used: 10 Age of first use: 18 Date of Last Use: 08/01/18 (Reports last used at 10am ) Xanax Route: Oral Frequency: Daily Amount used: 2 pills per day Age of first use: 24 Date of Last Use: 08/01/18 Family Disease History - Family Disease History Family Disease History: Heart Disease: Grandparent (BOTH SIDES-), Respiratory: Grandparent, Other: Grandparent, Father (HTN), Mother (PARKINSON'S DISEASE) Admission Physical Exam BHS - Vital Signs Vital Signs: Vital Signs - 24 hr 08/01/18 08/01/18 15:16 17:18 Temperature 99.3 F 99.3 F Pulse Rate 85 85 Respiratory 18 18 Rate Blood Pressure 141/92 141/92 - Physical General Appearance: Yes: Anxious HEENTM: Yes: Hearing grossly Normal, Normocephalic, Normal Voice Respiratory: Yes: Chest Non-Tender, Lungs Clear, Normal Breath Sounds, No Respiratory Distress, No Accessory Muscle Use Neck: Yes: No masses,lesions,Nodules, Trachea in good position Breast: Yes: Breast Exam Deferred Cardiology: Yes: Regular Rhythm, Regular Rate Abdominal: Yes: Normal Bowel Sounds, Non Tender, Flat, Soft Genitourinary: Yes: Other Back: Yes: Normal Inspection Musculoskeletal: Yes: Back pain Extremities: Yes: Normal Capillary Refill, Normal Inspection, Normal Range of Motion Neurological: Yes: Alert, Normal Mood/Affect, Normal Response Integumentary: Yes: Normal Color, Dry, Track [place] Lymphatic: Yes: Within Normal Limits - Diagnostic (1) Opioid dependence on agonist therapy Current Visit: Yes Status: Chronic Comment: Pt. reports he last used heroin at 10am today. (2) Sedative, hypnotic or anxiolytic dependence with withdrawal, uncomplicated Current Visit: Yes Status: Chronic (3) Asthma Current Visit: Yes Status: Chronic Qualifiers: Asthma severity: mild intermittent Asthma complication type: uncomplicated (4) Nicotine dependence Current Visit: Yes Status: Chronic Qualifiers: Nicotine product type: cigarettes Substance use status: in withdrawal Qualified Code(s): F17.213 - Nicotine dependence, cigarettes, with withdrawal Cleared for Admission [facility] - Detox or Rehab [facility] Level of Care: Medically Managed Detox Regimen/Protocol: Valium (Client to be assessed in the morning for the continuation of Suboxone treatment. ) [facility] Breath Alcohol Content Breath Alcohol Content: 0 Urine Drug Screen - Results Drug Screen Negative: No Urine Drug Screen Results: BZO-Benzodiazepines
--- NOTE | 2018-08-01 21:08 | PN ---
[facility] Progress Note Note: Client has a history of Heroin and Xanax dependence. He is requesting detox from opiates and benzodiazepines. Utox positive for BZO and MOP only. He reports he last used 2 bags of heroin today at 10am. He has been receiving monthly prescriptions of Suboxone since 10/2017. Per ENVIRONMENTAL GEOLOGIST (see below), 42 tablets of 8/2mg of Suboxone were dispensed on 07/08/18 and another 60 tablets were dispensed on 07/30/18. Client was informed that he will be prescribed the Valium detox protocol and be assessed in the morning for continuation of Suboxone treatment; client in agreement with starting Suboxone in the morning once in withdrawal. Consulted with Wayne Lambert and requested that the client be assessed by a provider. w Patient Name: germaine Jaime w Date: w 1990 w Address: [place] [address] w Sex: w Male Patient Name: Florentino Jaime Date: 1990 Address: [address] [place] [address] Sex: Male Rx Written Rx Dispensed Drug Quantity Days Supply Prescriber Name w 07/29/2018 w 07/30/2018 w buprenorphine-naloxone 8-2 mg sl tablet w 60 w 30 w Devyn Duncan 07/08/2018 l 07/08/2018 l buprenorphine-naloxone 8-2 mg sl tablet l 42 l 21 l Devyn Duncan 06/05/2018 w 06/13/2018 w suboxone 8 mg-2 mg sl film w 45 w 23 w Devyn Duncan 05/22/2018 l 05/25/2018 l suboxone 8 mg-2 mg sl film l 30 l 30 l Ricki Venegas MD w 04/17/2018 w 04/22/2018 w suboxone 8 mg-2 mg sl film w 60 w 30 w Devyn Duncan 03/13/2018 l 03/22/2018 l suboxone 8 mg-2 mg sl film l 60 l 30 l Devyn Duncan 02/11/2018 w 02/16/2018 w suboxone 8 mg-2 mg sl film w 60 w 30 w Ricki Venegas MD l 01/14/2018 l 01/15/2018 l suboxone 8 mg-2 mg sl film l 60 l 30 l Ricki Venegas MD w 12/02/2017 w 12/02/2017 w suboxone 8 mg-2 mg sl film w 60 w 30 w Devyn Duncan Patient Name: Florentino Jaime Date: 1990 Address: [address] [place] [address] Sex: Male Rx Written Rx Dispensed Drug Quantity Days Supply Prescriber Name w 11/01/2017 w 11/02/2017 w suboxone 8 mg-2 mg sl film w 60 w 30 w Cathryn Parra
[2018-08-01] MEDS ORDERED: ACETAMINOPHEN 325 MG TABLET (FP) PO PRN (21:11)
[2018-08-01] MEDS ORDERED: MAGNESIUM HYDROX 2400MG/30ML ORAL SUSPENSION 30 ML CUP PO PRN (21:11)
[2018-08-01] MEDS ORDERED: MAGNESIUM CITRATE 300 ML BOTTLE PO PRN (21:11)
[2018-08-01] MEDS ORDERED: IBUPROFEN 400 MG TABLET (FP) PO PRN (21:11)
[2018-08-01] MEDS ORDERED: MENTHOL/PHENOL 1 EACH UD MM PRN (21:11)
[2018-08-01] MEDS ORDERED: guaiFENesin/D-METHORPHAN HB 10 ML UNIT-DOSE CUPS PO PRN (21:11)
[2018-08-01] MEDS ORDERED: hydrOXYzine PAMOATE 50 MG CAPSULE (FP) PO PRN (21:11)
[2018-08-01] MEDS ORDERED: LOPERAMIDE HCL 2 MG CAPSULE PO PRN (21:11)
[2018-08-01] MEDS ORDERED: P-EPHED 60MG/TRIPROLIDI 2.5MG TABLET PO PRN (21:11)
[2018-08-01] MEDS ORDERED: MAG HYDROX/AL HYDROX/SIMETH 30 ML UNIT-DOSE CUP PO PRN (21:11)
[2018-08-01] MEDS ORDERED: diazePAM 5 MG TABLET PO ONE (21:11)
[2018-08-01] MEDS: THIAMINE HCL 100 MG TABLET (FP) PO SCH (21:46)
[2018-08-01] MEDS: diazePAM 5 MG TABLET PO SCH (22:06)
[2018-08-01] MEDS: MELATONIN 5 MG TABLETS PO PRN (22:10)
[2018-08-02] MEDS: diazePAM 5 MG TABLET PO SCH ×3 (05:48→22:07)
[2018-08-02] MEDS: diazePAM 5 MG TABLET PO PRN ×2 (09:01→17:29)
[2018-08-02] MEDS: PRENATAL VITAMINS W/ FOLIC ACID TABLET (FP) PO SCH (10:06)
[2018-08-02 10:22] LABS: HEMATOCRIT 40.1 % (35.4-49); HEMOGLOBIN 14.2 GM/dL (11.7-16.9); MCH 30.6 pg (25.7-33.7); MCHC 35.4 g/dl (32.0-35.9); MEAN CELL VOLUME 86.3 fl (80-96); MEAN PLT VOLUME 7.2 fl (7.5-11.1); PLATELET COUNT 271 K/MM3 (134-434); RBC 4.65 M/mm3 (4.00-5.60); RDW 12.8 % (11.9-15.9); WHITE BLOOD COUNT 5.8 K/mm3 (4.0-10.0)
[2018-08-02 10:55] LABS: ALBUMIN 3.7 g/dl (3.4-5.0); ALK PHOS 67 U/L (45-117); ANION GAP 11 MMOL/L (8-16); BILIRUBIN,TOTAL 0.6 mg/dL (0.2-1); BLOOD UREA NITROGEN 18 mg/dL (7-18); CALCIUM 8.8 mg/dL (8.5-10.1); CHLORIDE 106 mmol/L (98-107); CO2 25 mmol/L (21-32); CREATININE 0.7 mg/dL (0.55-1.3); GLUCOSE,RANDOM 90 mg/dL (74-106); POTASSIUM 3.9 mmol/L (3.5-5.1); SGOT/AST 16 U/L (15-37); SGPT/ALT 26 U/L (13-61); SODIUM 141 mmol/L (136-145)
--- NOTE | 2018-08-02 11:40 | PN ---
[facility] CIWA - CIWA Score Nausea/Vomitin-No Nausea/No Vomiting Muscle Tremors: 2 Anxiety: 3 Agitation: 3 Paroxysmal Sweats: 2 Orientation: 0-Oriented Tacttile Disturbances: 1-Very Mild Itch/Numbness Auditory Disturbances: 0-None Visual Disturbances: 1-Very Mild Sensitivity Headache: 0-None Present CIWA-Ar Total Score: 12 BHS COWS - Scale Resting Pulse: 0= [place] 80 or Below Sweatin= Chills/Flushing Restless Observation: 1= Difficult to Sit Still Pupil Size: 1= Pupils >than Normal Bone or Joint Aches: 2= Severe Diffuse Aches Runny Nose/ Eye Tearin= Nasal Congestion GI Upset > 30mins: 1= Stomach Cramp Tremor Observation of Outstretched Hands: 1= Tremor [place], Not Seen Yawning Observation: 2= >3x During Session Anxiety or Irritability: 2=Irritable/Anxious Goose Flesh Skin: 0=Smooth Skin COWS Score: 12 [facility] Progress Note (SOAP) Subjective: fatigue, sweats, interrupted sleep, anxious Objective: 08/02/18 11:41 Vital Signs Temperature 96.4 F L 08/02/18 09:11 Pulse Rate 65 08/02/18 09:11 Respiratory Rate 18 08/02/18 09:11 Blood Pressure 120/69 08/02/18 09:11 O2 Sat by Pulse Oximetry (%) Laboratory Last Values WBC 5.8 K/mm3 (4.0-10.0) 08/02/18 08:00 RBC 4.65 M/mm3 (4.00-5.60) 08/02/18 08:00 Hgb 14.2 GM/dL (11.7-16.9) 08/02/18 08:00 Hct 40.1 % (35.4-49) 08/02/18 08:00 MCV 86.3 fl (80-96) 08/02/18 08:00 MCH 30.6 pg (25.7-33.7) 08/02/18 08:00 MCHC 35.4 g/dl (32.0-35.9) 08/02/18 08:00 RDW 12.8 % (11.9-15.9) 08/02/18 08:00 Plt Count 271 K/MM3 (134-434) D 08/02/18 08:00 MPV 7.2 fl (7.5-11.1) L 08/02/18 08:00 Sodium 141 mmol/L (136-145) 08/02/18 08:00 Potassium 3.9 mmol/L (3.5-5.1) 08/02/18 08:00 Chloride 106 mmol/L (98-107) 08/02/18 08:00 Carbon Dioxide 25 mmol/L (21-32) 08/02/18 08:00 Anion Gap 11 MMOL/L (8-16) 08/02/18 08:00 BUN 18 mg/dL (7-18) 08/02/18 08:00 Creatinine 0.7 mg/dL (0.55-1.3) 08/02/18 08:00 Creat Clearance w eGFR > 60 (>60) 08/02/18 08:00 Random Glucose 90 mg/dL (74-106) 08/02/18 08:00 Calcium 8.8 mg/dL (8.5-10.1) 08/02/18 08:00 Total Bilirubin 0.6 mg/dL (0.2-1) 08/02/18 08:00 AST 16 U/L (15-37) 08/02/18 08:00 ALT 26 U/L (13-61) 08/02/18 08:00 Alkaline Phosphatase 67 U/L (45-117) 08/02/18 08:00 Total Protein 7.0 g/dl (6.4-8.2) 08/02/18 08:00 Albumin 3.7 g/dl (3.4-5.0) 08/02/18 08:00 AOx3 no distress no adventitious breath sounds full ROM ambulating in the unit Assessment: 08/02/18 11:43 withdrawal sx Plan: increase PO fluids continue detox continue to monitor
[2018-08-02] MEDS: BUPRENORPHINE/NALOXONE 8 MG/2 MG FILM PACKET SL SCH ×2 (12:07→22:07)
--- NOTE | 2018-08-02 12:25 | EKG ---
Test Reason : Blood Pressure : / mmHG Vent. Rate : 067 BPM Atrial Rate : 067 BPM P-R Int : 146 ms QRS Dur : 094 ms QT Int : 398 ms P-R-T Axes : 067 087 044 degrees QTc Int : 420 ms NORMAL SINUS RHYTHM INCOMPLETE RIGHT BUNDLE BRANCH BLOCK WHEN COMPARED WITH ECG OF 11-MAR-2017 11:52, NO SIGNIFICANT CHANGE WAS FOUND Confirmed by EDILMA MIRANDA MD ([id number]) on 08/02/2018 12:24:27 PM Referred By: Confirmed By:EDILMA MIRANDA MD
[2018-08-02 12:41] LABS: RPR NONREACTIVE (NONREACTIVE)
--- NOTE | 2018-08-02 16:38 | CONSULT ---
[facility] Psychiatric Consult - Data Date of interview: 08/02/18 Admission source: [facility] Identifying data: Approached for psychiatric interview at bedside. Mr Jaime refuses. Examination waived due to patient's refusal to cooperate. [employer] T[employer] remains available for services to the patient whenever he changes his mindset about psychiatric care.
[2018-08-02] MEDS: THIAMINE HCL 100 MG TABLET (FP) PO SCH (22:07)
[2018-08-02] MEDS: MELATONIN 5 MG TABLETS PO PRN (22:08)
[2018-08-03] MEDS: diazePAM 5 MG TABLET PO PRN ×3 (07:26→20:40)
[2018-08-03] MEDS: BUPRENORPHINE/NALOXONE 8 MG/2 MG FILM PACKET SL SCH ×2 (10:06→22:10)
[2018-08-03] MEDS: diazePAM 5 MG TABLET PO SCH ×2 (10:06→22:10)
[2018-08-03] MEDS: PRENATAL VITAMINS W/ FOLIC ACID TABLET (FP) PO SCH (10:06)
--- NOTE | 2018-08-03 13:58 | PN ---
[facility] CIWA - CIWA Score Nausea/Vomitin-Mild Nausea/No Vomiting Muscle Tremors: 3 Anxiety: 4-Mod. Anxious/Guarded Agitation: 3 Paroxysmal Sweats: 3 Orientation: 0-Oriented Tacttile Disturbances: 0-None Auditory Disturbances: 0-None Visual Disturbances: 0-None Headache: 1-Very Mild CIWA-Ar Total Score: 15 BHS COWS - Scale Resting Pulse: 0= [place] 80 or Below Sweatin= Chills/Flushing Restless Observation: 3= Extraneous Movement Pupil Size: 0= Normal to Room Light Bone or Joint Aches: 1= Mild Discomfort Runny Nose/ Eye Tearin= Runny Nose/Eyes GI Upset > 30mins: 1= Stomach Cramp Tremor Observation of Outstretched Hands: 2= Slight Tremor Visible Yawning Observation: 0= None Anxiety or Irritability: 2=Irritable/Anxious Goose Flesh Skin: 0=Smooth Skin COWS Score: 12 [facility] Progress Note (SOAP) Subjective: Anxious, sweating, chills, tremor, interrupted sleep Objective: 08/03/18 13:56 Last Vital Signs Temp Pulse Resp BP Pulse Ox 97.8 F 65 18 121/75 08/03/18 13:16 08/03/18 13:16 08/03/18 13:16 08/03/18 13:16 Laboratory Tests 08/02/18 08/02/18 08/02/18 08:00 08:00 08:00 WBC 5.8 RBC 4.65 Hgb 14.2 Hct 40.1 MCV 86.3 MCH 30.6 MCHC 35.4 RDW 12.8 Plt Count 271 D MPV 7.2 L Sodium 141 Potassium 3.9 Chloride 106 Carbon Dioxide 25 Anion Gap 11 BUN 18 Creatinine 0.7 Creat Clearance w eGFR > 60 Random Glucose 90 Calcium 8.8 Total Bilirubin 0.6 AST 16 ALT 26 Alkaline Phosphatase 67 Total Protein 7.0 Albumin 3.7 RPR Titer Nonreactive Hep C Ab Diagnostic HIV 1&2 Antibody Screen Negative HIV P24 Antigen Negative 08/02/18 08:00 WBC RBC Hgb Hct MCV MCH MCHC RDW Plt Count MPV Sodium Potassium Chloride Carbon Dioxide Anion Gap BUN Creatinine Creat Clearance w eGFR Random Glucose Calcium Total Bilirubin AST ALT Alkaline Phosphatase Total Protein Albumin RPR Titer Hep C Ab Diagnostic 0.1 HIV 1&2 Antibody Screen HIV P24 Antigen Labs reviewed Assessment: 08/03/18 13:57 Withdrawal symptoms Plan: Continue detox Encouraged PO water intake
[2018-08-03 17:33] LABS: URINE APPEARANCE CLEAR; URINE BILIRUBIN NEGATIVE (<2.0 mg/dL); URINE COLOR AMBER; URINE GLUCOSE (UA) NEGATIVE (NEGATIVE); URINE KETONE NEGATIVE (NEGATIVE); URINE LEUK ESTERASE NEGATIVE (NEGATIVE); URINE NITRITE NEGATIVE (NEGATIVE); URINE PROTEIN 1+ (NEGATIVE); URINE UROBILINOGEN 4.0 E.U/dl mg/dL (0.2-1.0)
[2018-08-03 17:35] LABS: URINE BACTERIA RARE /hpf (NONE SEEN); URINE MUCUS MANY
[2018-08-03] MEDS: MELATONIN 5 MG TABLETS PO PRN (22:10)
[2018-08-03] MEDS: THIAMINE HCL 100 MG TABLET (FP) PO SCH (22:11)
[2018-08-04] MEDS: diazePAM 5 MG TABLET PO PRN (03:21)
[2018-08-04 06:07] VITALS: BP 123/71; PULSE 56; TEMP 97.3
--- NOTE | 2018-08-04 07:37 | DS ---
[facility] Detox Discharge Summary Admission Date: 08/01/18 Discharge Date: 08/04/18 - History Present History: Opioid Dependence, Sedative Dependence Additional Comments: client on suboxone maintenance. last rx picked up 07/30/2018 Pertinent Past History: asthma nicotine dependence - Physical Exam Results Vital Signs: Vital Signs Temperature 97.3 F L 08/04/18 06:06 Pulse Rate 56 L 08/04/18 06:06 Respiratory Rate 18 08/04/18 06:06 Blood Pressure 123/71 08/04/18 06:06 O2 Sat by Pulse Oximetry (%) Pertinent Admission Physical Exam Findings: withdrawal sx's - Treatment Hospital Course: Discharged Condition Good - Medication Discharge Medications: Ambulatory Orders NK [No Known Home Medication] 03/11/17 - Diagnosis (1) Opioid dependence on agonist therapy Current Visit: Yes Status: Chronic (2) Sedative, hypnotic or anxiolytic dependence with withdrawal, uncomplicated Current Visit: Yes Status: Acute (3) Asthma Current Visit: Yes Status: Chronic Qualifiers: Asthma severity: mild Asthma persistence: intermittent Asthma complication type: uncomplicated Qualified Code(s): J45.20 - Mild intermittent asthma, uncomplicated (4) Nicotine dependence Current Visit: Yes Status: Chronic Qualifiers: Nicotine product type: cigarettes Substance use status: uncomplicated Qualified Code(s): F17.210 - Nicotine dependence, cigarettes, uncomplicated - AMA Did Patient Leave Against Medical Advice: Yes (CLIENT DECLINED CONTINUATION OF TXMNET. STATES HAS TO TAKE AN EXAM TODAY)
[2018-08-05] MEDS ORDERED: diazePAM 5 MG TABLET PO SCH (10:00)
== END 2018-08-04 07:30 | disposition left against medical advice (07) | DRG 770 ==
LOC: YASAS 13:40 → Y3N 19:51
PROC: HZ2ZZZZ Detoxification Services for Substance Abuse Treatment (ICD-10-PCS; principal; 2018-08-01)
DX: F11.23 Opioid dependence with withdrawal (principal); F13.230 Sedative, hypnotic or anxiolytic dependence with withdrawal, uncomplicated; F17.210 Nicotine dependence, cigarettes, uncomplicated; J45.20 Mild intermittent asthma, uncomplicated
CPT/HCPCS: 36415; 80053; 81003; 81015; 85027; 86593; 86803; 87389; 93005; 93010

== ENCOUNTER → 2019-02-22 | Emergency (ER) | payer OTHER ==
[2019-02-22 22:25] VITALS: BP 139/77; PULSE 95; TEMP 98.8; BMI 28.1
--- NOTE | 2019-02-22 22:25 | PDOC ---
History of Present Illness - General Chief Complaint: Altered Mental Status Stated Complaint: AMS Time Seen by Provider: 02/22/19 22:24 - History of Present Illness Initial Comments: 02/22/19 22:24 Mr. Jaime is a 28 yo male w/ pmh of substance abuse who presents for evaluation from [facility], [place]. Patient requesting detox however was noted to be altered upon arrival at detox facility and sent to ED for further evaluation. Patient has no complaints at this time. Endorses injecting 5 bags of heroin today and reports this is his usual dose. Denies any other alcohol or drug use besides cigarettes. The patient denies chest pain, shortness of breath, headache and dizziness. Denies fever, chills, nausea, vomit, diarrhea and constipation. Denies dysuria, frequency, urgency and hematuria. Past History - Past Medical History Allergies/Adverse Reactions: Allergies Allergy/AdvReac Type Severity Reaction Status Date / Time No Known Allergies Allergy Verified 02/22/19 22:25 Home Medications: Ambulatory Orders NK [No Known Home Medication] 03/11/17 Anemia: No Asthma: Yes (ON MDI) Cancer: No Cardiac Disorders: No CVA: No COPD: No CHF: No Dementia: No Diabetes: No GI Disorders: No Disorders: No HTN: No Hypercholesterolemia: No Kidney Stones: No Liver Disease: No Seizures: No Thyroid Disease: No - Surgical History Abdominal Surgery: No Appendectomy: No Cardiac Surgery: No Cholecystectomy: No Lung Surgery: No Neurologic Surgery: No Orthopedic Surgery: No - Reproductive History Testicular Surgery: No - Suicide/Smoking/Psychosocial Hx Smoking History: Current every day smoker Have you smoked in the past 12 months: Yes Number of Cigarettes Smoked Daily: 3 Cigars Per Day: 10 Information on smoking cessation initiated: No 'Breaking Loose' booklet given: 08/01/18 Hx Alcohol Use: Yes Drug/Substance Use Hx: Yes (Cocaine, PCP) Substance Use Type: Heroin, Tranquilizers Hx Substance Use Treatment: Yes (Detox: 02/2017) Review of Systems - Review of Systems Comments:: 02/22/19 22:25 GENERAL/CONSTITUTIONAL: No fever or chills. No weakness. HEAD, EYES, EARS, NOSE AND THROAT: No change in vision. No ear pain or discharge. No sore throat. CARDIOVASCULAR: No chest pain or shortness of breath RESPIRATORY: No cough, wheezing, or hemoptysis. GASTROINTESTINAL: No nausea, vomiting, diarrhea or constipation. GENITOURINARY: No dysuria, frequency, or change in urination. MUSCULOSKELETAL: No joint or muscle swelling or pain. No neck or back pain. SKIN: No rash NEUROLOGIC: No headache, vertigo, loss of consciousness, or change in strength/ sensation. ENDOCRINE: No increased thirst. No abnormal weight change HEMATOLOGIC/LYMPHATIC: No anemia, easy bleeding, or history of blood clots. ALLERGIC/IMMUNOLOGIC: No hives or skin allergy. *Physical Exam - Vital Signs Last Vital Signs Temp Pulse Resp BP Pulse Ox 98.8 F 95 H 19 139/77 97 02/22/19 22:05 02/22/19 22:05 02/22/19 22:05 02/22/19 22:05 02/22/19 22:05 - Physical Exam Comments: 02/22/19 22:25 GENERAL: +Patient visibly under the influence with delayed responses however awake, alert, and fully oriented, in no acute distress HEAD: No signs of trauma, normocephalic, atraumatic EYES: PERRLA, EOMI, sclera anicteric, conjunctiva clear ENT: Auricles normal inspection, hearing grossly normal, nares patent, oropharynx clear without exudates. Moist mucosa NECK: Normal ROM, supple, no lymphadenopathy, JVD, or masses LUNGS: No distress, speaks full sentences, clear to auscultation bilaterally HEART: Regular rate and rhythm, normal S1 and S2, no murmurs, rubs or gallops, peripheral pulses normal and equal bilaterally. ABDOMEN: Soft, nontender, normoactive bowel sounds. No guarding, no rebound. No masses EXTREMITIES: +Needle beal noted. Otherwise normal inspection, Normal range of motion, no edema. No clubbing or cyanosis. NEUROLOGICAL: +Cranial nerves II through XII grossly intact. Normal gait, no focal sensorimotor deficits SKIN: Warm, Dry, normal turgor, no rashes or lesions noted. ED Treatment Course - LABORATORY CBC & Chemistry Diagram: 02/22/19 22:48 02/22/19 22:48 Medical Decision Making - Medical Decision Making 02/22/19 23:56 Mr. Jaime is a 28 yo male w/ pmh as described who presents for evaluation from [facility] for AMS. Patient endorses drug use this evening. Labs sent for evaluation of possible infectious or electrolyte abnormalities as well as tox screen. Upon repeat evaluation patient noted to have eloped from ER. *DC/Admit/Observation/Transfer Diagnosis at time of Disposition: Eloped from emergency department - Discharge Dispostion Disposition: ELOPED Condition at time of disposition: Fair - Referrals - Patient Instructions - Post Discharge Activity
[2019-02-22 22:59] LABS: HEMATOCRIT 37.2 % (35.4-49); HEMOGLOBIN 12.1 GM/dL (11.7-16.9); MCHC 32.6 g/dl (32.0-35.9); MEAN CELL VOLUME 88.8 fl (80-96); MEAN PLT VOLUME 6.5 fl (7.5-11.1); PLATELET COUNT 280 K/MM3 (134-434); RBC 4.19 M/mm3 (4.00-5.60); RDW 13.1 % (11.9-15.9); WHITE BLOOD COUNT 6.7 K/mm3 (4.0-10.0)
[2019-02-22 23:26] LABS: COCAINE, UR NEGATIVE ng/ml (CUTOFF=300); METHADONE, UR NEGATIVE ng/ml (CUTOFF=300); URINE AMPHETAMINES NEGATIVE ng/ml (CUTOFF=500); URINE BARBITURATES NEGATIVE ng/ml (CUTOFF=200); URINE BENZODIAZEPINES NEGATIVE ng/ml (CUTOFF=200)
[2019-02-22 23:27] LABS: OPIATES, URI POSITIVE ng/ml (CUTOFF=300); PHENCYCLIDINE,URINE POSITIVE ng/ml (CUTOFF=25)
--- NOTE | 2019-02-22 23:34 | PDOC ---
Documentation entered by Joanne Infante SCRIBE, acting as scribe for Ovidio Napoles MD. Ovidio Napoles MD: This documentation has been prepared by the Naresh patel Nirvannie, SCRIBE, under my direction and personally reviewed by me in its entirety. I confirm that the documentation accurately reflects all work, treatment, procedures, and medical decision making performed by me. Attending Attestation - Resident Resident Name: Jose Khan - ED Attending Attestation I have performed the following: I have examined & evaluated the patient, The case was reviewed & discussed with the resident, I agree w/resident's findings & plan - HPI HPI: 02/22/19 23:16 CC: Requests Detox HPI: The patient is a 28 year old male, with a significant past medical history of IV heroin dependence (5 bags/day), who presents to the emergency department requesting detox. As per patient, he took his normal daily dosage of heroin today when he realized he needed help and wanted detox. As per [facility], upon his arrival patient was unable to answer questions, prompting his arrival to the ED. He denies any recent fevers, chills, headache or dizziness. He denies any recent nausea, vomit, diarrhea or constipation. He denies any recent chest pain or shortness of breath. He denies any recent dysuria, frequency, urgency or hematuria. Allergies: NKDA Past surgical history: None reported. Social History: Heroin usage (IV, 5 bags/day) - Physicial Exam PE: 02/22/19 23:16 Vitals: Triage vital signs reviewed General Appearance: No acute distress, well nourished, well developed Head: Atraumatic Chest Wall: Nontender Cardiac: Regular rate and rhythm, no murmurs, no rubs, no gallops Lungs: Clear to auscultation bilateral, good air movement bilaterally Extremities: Full range of motion to all extremities, Skin: Warm and dry, no rashes or lesions, no rash, no petechiae Neuro: AOX3; Cranial Nerves 2-12 grossly intact, Strength intact to all extremities, Sensation intact to all extremities, gait normal Psych: Normal mood, normal affect - Medical Decision Making 02/23/19 01:52 History of IV drug use sent from [facility] secondary to intoxication labs sent Patient was seen walking around the emergency department using the bathroom then eloped. Patient had steady gait did not have an IV in place 3 attempts are made to call patient at home with no answer
[2019-02-23 01:49] LABS: ALBUMIN 3.5 g/dl (3.4-5.0); ALK PHOS 66 U/L (45-117); ANION GAP 6 MMOL/L (8-16); BILIRUBIN,TOTAL 0.2 mg/dL (0.2-1); BLOOD UREA NITROGEN 13 mg/dL (7-18); CALCIUM 8.5 mg/dL (8.5-10.1); CHLORIDE 112 mmol/L (98-107); CO2 26 mmol/L (21-32); CREATININE 0.7 mg/dL (0.55-1.3); GLUCOSE,RANDOM 94 mg/dL (74-106); POTASSIUM 4.1 mmol/L (3.5-5.1); SGOT/AST 24 U/L (15-37); SGPT/ALT 29 U/L (13-61); SODIUM 144 mmol/L (136-145); TOT PROT 7.1 g/dl (6.4-8.2)
== END | disposition left against medical advice (07) ==
LOC: JER 22:05
DX: F19.10 Other psychoactive substance abuse, uncomplicated (principal); R41.82 Altered mental status, unspecified
CPT/HCPCS: 36415; 80053; 80307; 85027; 99281-25

== ENCOUNTER 2019-02-23 03:05 | Emergency (ER) | payer OTHER | END 2019-02-23 04:05 | disposition home or self-care (01) | LOC: JER 03:05 ==

== ENCOUNTER 2019-02-23 04:13 | Inpatient (IN) | payer OTHER | END 2019-02-23 07:14 | disposition left against medical advice (07) | LOC: YASAS 04:13 → Y6N 05:45 ==

== ENCOUNTER 2019-08-09 11:25 | Inpatient (IN) | payer OTHER ==
[2019-08-09 12:33] VITALS: BMI 25.8
--- NOTE | 2019-08-09 15:03 | HP ---
COWS - Scale Resting Pulse: 0= [place] 80 or Below Sweatin= Chills/Flushing Restless Observation: 1= Difficult to Sit Still Pupil Size: 1= Pupils >than Normal Bone or Joint Aches: 2= Severe Diffuse Aches Runny Nose/ Eye Tearin= Runny Nose/Eyes GI Upset > 30mins: 2= Nausea/Diarrhea Tremor Observation: 2= Slight Tremor Visible Yawning Observation: 1= 1-2x During Session Anxiety or Irritability: 2=Irritable/Anxious Goose Flesh Skin: 0=Smooth Skin COWS Score: 14 CIWA Score Nausea/Vomitin Muscle Tremors: 2 Anxiety: 2 Agitation: 3 Paroxysmal Sweats: 1-Minimal Palms Moist Orientation: 0-Oriented Tacttile Disturbances: 1-Very Mild Itch/Numbness Auditory Disturbances: 0-None Visual Disturbances: 0-None Headache: 2-Mild CIWA-Ar Total Score: 13 - Admission Criteria [facility]ASAS Guidelines: Admission for Medically Managed Detox: Requires at least one of the followin. CIWA greater than 12 2. Seizures within the past 24 hours 3. Delirium tremens within the past 24 hours 4. Hallucinations within the past 24 hours 5. Acute intervention needed for co occurring medical disorder 6. Acute intervention needed for co occurring psychiatric disorder 7. Severe withdrawal that cannot be handled at a lower level of care (continued vomiting, continued diarrhea, abnormal vital signs) requiring intravenous medication and/or fluids 8. Admitting History and Physical - Smoking History Smoking history: Current every day smoker Have you smoked in the past 12 months: Yes Aproximately how many cigarettes per day: 10 - Alcohol/Substance Use Hx Alcohol Use: No Admission [facility] - HPI Chief Complaint: i need help to stop using heroin and xanx Allergies/Adverse Reactions: Allergies Allergy/AdvReac Type Severity Reaction Status Date / Time No Known Allergies Allergy Verified 08/09/19 12:28 History of Present Illness: this29 years old male with heroin and xanax dependence seeking detox,withdrawal symptom last detox [facility] in 10/18 last [facility] in 02/23 but left,stated not ready denied seizure, denied syncope, longest sobriety 7 months plan for out patient program history of asthma - Ebola screening Have you traveled outside of the country in the last 21 days: No (N) Have you had contact with anyone from an Ebola affected area: No Do you have a fever: No - Review of Systems Constitutional: Chills, Loss of Appetite, Malaise, Night Sweats, Changes in sleep, Weakness EENT: reports: Tearing, Nose Congestion Respiratory: reports: No Symptoms reported Cardiac: reports: No Symptoms Reported GI: reports: Diarrhea, Nausea, Abdominal cramping : reports: No Symptoms Reported Musculoskeletal: reports: Back Pain, Joint Pain, Muscle Pain Integumentary: reports: Dryness Neuro: reports: Headache, Tremors Endocrine: reports: No Symptoms Reported Hematology: reports: No Symptoms Reported Psychiatric: reports: No Sypmtoms Reported, Judgement Intact, Mood/Affect Appropiate, Orientated x3, other Other Systems: Reviewed and Negative Patient History - Patient Medical History Hx Anemia: No Hx Asthma: Yes (ON MDI) Hx Chronic Obstructive Pulmonary Disease (COPD): No Hx Cancer: No Hx Cardiac Disorders: No Hx Congestive Heart Failure: No Hx Hypertension: No Hx Hypercholesterolemia: No Hx Pacemaker: No HX Cerebrovascular Accident: No Hx Seizures: No Hx Dementia: No Hx Diabetes: No Hx Gastrointestinal Disorders: No Hx Liver Disease: No Hx Genitourinary Disorders: No Hx Sexually Transmitted Disorders: No Hx Renal Disease (ESRD): No Hx Thyroid Disease: No Hx Human Immunodeficiency Virus (HIV): No (NEGATIVE 2019 IN SEPTEMBER) Hx Hepatitis C: No (DENIES) Hx Depression: No Hx Suicide Attempt: No (Denies suicidal ideation at this time) Hx Bipolar Disorder: No Hx Schizophrenia: No Other Medical History: no suicidal,no homicidal - Patient Surgical History Past Surgical History: No Hx Neurologic Surgery: No Hx Cataract Extraction: No Hx Cardiac Surgery: No Hx Lung Surgery: No Hx Breast Surgery: No Hx Breast Biopsy: No Hx Abdominal Surgery: No Hx Appendectomy: No Hx Cholecystectomy: No Hx Genitourinary Surgery: No Hx Section: No Hx Orthopedic Surgery: No Anesthesia Reaction: No - PPD History Previous Implant?: Yes Documented Results: Negative w/o proof Implanted On Prior R Admission?: Yes Date: 08/03/18 Results: neg PPD to be Administered?: No - Smoking Cessation Smoking history: Never smoked - Substance & Tx. History Hx Alcohol Use: No Hx Substance Use: Yes Substance Use Type: Heroin, Tranquilizers Hx Substance Use Treatment: Yes (10/18 [facility]) - Substances abused Heroin Substance route: Injection Frequency: Daily Amount used: 20 BAGS Age of first use: 18 Date of last use: 08/09/19 PCP Substance route: Smoking Frequency: 1-2 times per week Amount used: 2 BAGS Age of first use: 15 Date of last use: 02/22/19 Alprazolam (Xanax) Other (specify): 2mg Substance route: Oral Frequency: Daily Amount used: 1 bar Age of first use: 23 Date of last use: 08/08/19 Admission Physical Exam [facility] - Vital Signs Vital Signs: Vital Signs - 24 hr 08/09/19 12:26 Temperature 97.5 F L Pulse Rate 58 L Respiratory 18 Rate Blood Pressure 111/62 - Physical General Appearance: Yes: Moderate Distress, Tremorous, Irritable, Sweating, Anxious HEENTM: Yes: Normal ENT Inspection, Pharynx Normal Respiratory: Yes: Lungs Clear, Normal Breath Sounds, No Respiratory Distress Neck: Yes: Within Normal Limits, Supple, Trachea in good position Breast: Yes: Within Normal Limits Cardiology: Yes: Within Normal Limits, Regular Rhythm, Regular Rate, S1, S2 Abdominal: Yes: Within Normal Limits, Normal Bowel Sounds, Non Tender, Soft Genitourinary: Yes: Within Normal Limits Back: Yes: Muscle Spasm Musculoskeletal: Yes: Back pain, Joint Stiffness, Muscle Pain Extremities: Yes: Within Normal Limits, Normal Range of Motion, Tremors Neurological: Yes: Within Normal Limits, scenery builder II-XII NML intact, Fully Oriented, Alert, Motor Strength 5/5 Integumentary: Yes: Dry, Track [place] Lymphatic: Yes: Within Normal Limits - Diagnostic (1) Opioid dependence with withdrawal Current Visit: No Status: Chronic (2) PCP (phencyclidine) abuse Current Visit: No Status: Acute (3) PCP dependence Current Visit: No Status: Chronic (4) Sedative, hypnotic or anxiolytic dependence with withdrawal, uncomplicated Current Visit: No Status: Chronic (5) IVDU (intravenous drug user) Current Visit: Yes Status: Acute Cleared for Admission [facility] - Detox or Rehab [facility] Level of Care: Medically Managed Detox Regimen/Protocol: Methadone/Valium Breathalyzer - Breathalyzer Breathalyzer: 0 Urine Drug Screen - Test Device Lot number: [id number] Expiration date: 04/29/21 - Control Is test valid?: Yes - Results Drug screen NEGATIVE: No Urine drug screen results: MOP-Opiates, BZO-Benzodiazepines Inpatient Rehab Admission - Rehab Decision to Admit Inpatient rehab admission?: No
[2019-08-09] MEDS ORDERED: MAGNESIUM CITRATE 300 ML BOTTLE PO PRN (15:11)
[2019-08-09] MEDS ORDERED: BISMUTH SUBSALICYLATE 524 MG/30 ML UD PO PRN (15:11)
[2019-08-09] MEDS ORDERED: ACETAMINOPHEN 325 MG TABLET (FP) PO PRN ×2 (15:11)
[2019-08-09] MEDS ORDERED: METHADONE HCL 10 MG TABLET (FOR DETOX USE ONLY) PO ONE (15:11)
[2019-08-09] MEDS ORDERED: IBUPROFEN 400 MG TABLET (FP) PO PRN (15:11)
[2019-08-09] MEDS ORDERED: MAGNESIUM HYDROX 2400MG/30ML ORAL SUSPENSION 30 ML CUP PO PRN (15:11)
[2019-08-09] MEDS ORDERED: MAG HYDROX/AL HYDROX/SIMETH 30 ML UNIT-DOSE CUP PO PRN (15:11)
[2019-08-09] MEDS ORDERED: MENTHOL/PHENOL 1 EACH UD MM PRN (15:11)
[2019-08-09] MEDS: diazePAM 5 MG TABLET PO PRN (16:34)
[2019-08-09] MEDS: cloNIDine HCL 0.1 MG TABLET PO PRN (21:00)
[2019-08-09] MEDS: THIAMINE HCL 100 MG TABLET (FP) PO SCH (21:00)
[2019-08-09] MEDS: MELATONIN 5 MG TABLETS PO PRN (21:00)
[2019-08-09] MEDS: diazePAM 5 MG TABLET PO SCH (21:00)
[2019-08-10] MEDS: diazePAM 5 MG TABLET PO SCH ×3 (05:28→22:18)
[2019-08-10] MEDS: cloNIDine HCL 0.1 MG TABLET PO PRN ×2 (05:28→22:18)
[2019-08-10] MEDS ORDERED: METHADONE HCL 10 MG TABLET (FOR DETOX USE ONLY) ONE (08:43)
[2019-08-10] MEDS ORDERED: METHADONE HCL 5 MG TABLET (FOR DETOX USE ONLY) ONE (08:43)
[2019-08-10 09:54] LABS: PH,URINE 7.5 (5.0-8.0); URINE APPEARANCE CLEAR; URINE BILIRUBIN NEGATIVE (NEGATIVE); URINE COLOR YELLOW; URINE GLUCOSE (UA) NEGATIVE (NEGATIVE); URINE KETONE NEGATIVE (NEGATIVE); URINE LEUK ESTERASE NEGATIVE (NEGATIVE); URINE NITRITE NEGATIVE (NEGATIVE); URINE PROTEIN NEGATIVE (NEGATIVE)
[2019-08-10] MEDS ORDERED: METHADONE (DETOX) 20 MG, METHADONE (DETOX) 5 MG PO ONE (10:00)
[2019-08-10] MEDS: PRENATAL VITAMINS W/ FOLIC ACID TABLET (FP) PO SCH (10:27)
[2019-08-10] MEDS: diazePAM 5 MG TABLET PO PRN ×2 (10:29→17:00)
[2019-08-10 12:13] LABS: HEMATOCRIT 39.3 % (35.4-49); HEMOGLOBIN 13.2 GM/dL (11.7-16.9); MCH 28.7 pg (25.7-33.7); MCHC 33.6 g/dl (32.0-35.9); MEAN CELL VOLUME 85.4 fl (80-96); MEAN PLT VOLUME 6.8 fl (7.5-11.1); PLATELET COUNT 260 K/MM3 (134-434); RDW 13.4 % (11.9-15.9); WHITE BLOOD COUNT 4.7 K/mm3 (4.0-10.0)
[2019-08-10 12:17] LABS: ALBUMIN 3.7 g/dl (3.4-5.0); BILIRUBIN,TOTAL 0.5 mg/dL (0.2-1); BLOOD UREA NITROGEN 12.6 mg/dL (7-18); CREATININE 0.8 mg/dL (0.55-1.3); TOT PROT 7.3 g/dl (6.4-8.2)
--- NOTE | 2019-08-10 12:34 | PN ---
[facility] CIWA - CIWA Score Nausea/Vomitin-Mild Nausea/No Vomiting Muscle Tremors: 4-Moderate,w/Arms Extend Anxiety: 3 Agitation: 2 Paroxysmal Sweats: 1-Minimal Palms Moist Orientation: 0-Oriented Tacttile Disturbances: 1-Very Mild Itch/Numbness Auditory Disturbances: 0-None Visual Disturbances: 0-None Headache: 0-None Present CIWA-Ar Total Score: 12 S COWS - Scale Resting Pulse: 0= [place] 80 or Below Sweatin= Chills/Flushing Restless Observation: 0= Sits Still Pupil Size: 0= Normal to Room Light Bone or Joint Aches: 1= Mild Discomfort Runny Nose/ Eye Tearin= Nasal Congestion GI Upset > 30mins: 1= Stomach Cramp Tremor Observation of Outstretched Hands: 2= Slight Tremor Visible Yawning Observation: 1= 1-2x During Session Anxiety or Irritability: 2=Irritable/Anxious Goose Flesh Skin: 3=Piloerection COWS Score: 12 S Progress Note (SOAP) Subjective: 29 years old male admitted on 08/09/19 for benzo and opiate withdrawal sx management treated with valium and methadone detox regimen ate breakfast tolerated food and fluid well, ambulating on hallway social with peers Objective: 08/10/19 12:42 Vital Signs Temperature 97.8 F 08/10/19 09:26 Pulse Rate 56 L 08/10/19 09:26 Respiratory Rate 18 08/10/19 09:26 Blood Pressure 109/58 L 08/10/19 09:26 O2 Sat by Pulse Oximetry (%) Laboratory Last Values WBC 4.7 K/mm3 (4.0-10.0) 08/10/19 08:20 RBC 4.60 M/mm3 (4.00-5.60) 08/10/19 08:20 Hgb 13.2 GM/dL (11.7-16.9) 08/10/19 08:20 Hct 39.3 % (35.4-49) 08/10/19 08:20 MCV 85.4 fl (80-96) 08/10/19 08:20 MCH 28.7 pg (25.7-33.7) 08/10/19 08:20 MCHC 33.6 g/dl (32.0-35.9) 08/10/19 08:20 RDW 13.4 % (11.9-15.9) 08/10/19 08:20 Plt Count 260 K/MM3 (134-434) 08/10/19 08:20 MPV 6.8 fl (7.5-11.1) L 08/10/19 08:20 Sodium 137 mmol/L (136-145) 08/10/19 08:20 Potassium 4.0 mmol/L (3.5-5.1) 08/10/19 08:20 Chloride 105 mmol/L (98-107) 08/10/19 08:20 Carbon Dioxide 28 mmol/L (21-32) 08/10/19 08:20 Anion Gap 5 MMOL/L (8-16) L 08/10/19 08:20 BUN 12.6 mg/dL (7-18) 08/10/19 08:20 Creatinine 0.8 mg/dL (0.55-1.3) 08/10/19 08:20 Est GFR (CKD-EPI)AfAm 137.96 08/10/19 08:20 Est GFR (CKD-EPI)NonAf 119.03 08/10/19 08:20 Random Glucose 107 mg/dL (74-106) H 08/10/19 08:20 Calcium 9.0 mg/dL (8.5-10.1) 08/10/19 08:20 Total Bilirubin 0.5 mg/dL (0.2-1) 08/10/19 08:20 AST 16 U/L (15-37) 08/10/19 08:20 ALT 25 U/L (13-61) 08/10/19 08:20 Alkaline Phosphatase 79 U/L (45-117) 08/10/19 08:20 Total Protein 7.3 g/dl (6.4-8.2) 08/10/19 08:20 Albumin 3.7 g/dl (3.4-5.0) 08/10/19 08:20 Urine Color Yellow 08/10/19 07:50 Urine Appearance Clear 08/10/19 07:50 Urine pH 7.5 (5.0-8.0) D 08/10/19 07:50 Ur Specific [place] 1.022 (1.010-1.035) 08/10/19 07:50 Urine Protein Negative (NEGATIVE) 08/10/19 07:50 Urine Glucose (UA) Negative (NEGATIVE) 08/10/19 07:50 Urine Ketones Negative (NEGATIVE) 08/10/19 07:50 Urine Blood Negative (NEGATIVE) 08/10/19 07:50 Urine Nitrite Negative (NEGATIVE) 08/10/19 07:50 Urine Bilirubin Negative (NEGATIVE) 08/10/19 07:50 Urine Urobilinogen 1.0 mg/dL (0.2-1.0) 08/10/19 07:50 Ur Leukocyte Esterase Negative (NEGATIVE) 08/10/19 07:50 RPR Titer Nonreactive (NONREACTIVE) 08/10/19 08:20 lab noted Assessment: 08/10/19 12:42 benzo and opiate withdrawal sx Plan: continue valium and methadone detox regimen
[2019-08-10] MEDS: THIAMINE HCL 100 MG TABLET (FP) PO SCH (22:18)
[2019-08-11] MEDS: cloNIDine HCL 0.1 MG TABLET PO PRN (05:10)
[2019-08-11] MEDS: diazePAM 5 MG TABLET PO SCH ×2 (05:10→17:02)
[2019-08-11] MEDS: diazePAM 5 MG TABLET PO PRN ×3 (08:52→19:42)
[2019-08-11] MEDS ORDERED: METHADONE HCL 10 MG TABLET (FOR DETOX USE ONLY) PO ONE (10:00)
[2019-08-11] MEDS: PRENATAL VITAMINS W/ FOLIC ACID TABLET (FP) PO SCH (10:44)
[2019-08-11] MEDS: METHOCARBAMOL 500 MG TABLET PO PRN ×2 (10:46→21:39)
--- NOTE | 2019-08-11 11:29 | PN ---
[facility] CIWA - CIWA Score Nausea/Vomitin-Mild Nausea/No Vomiting Muscle Tremors: 3 Anxiety: 3 Agitation: 2 Paroxysmal Sweats: 1-Minimal Palms Moist Orientation: 0-Oriented Tacttile Disturbances: 0-None Auditory Disturbances: 0-None Visual Disturbances: 0-None Headache: 0-None Present CIWA-Ar Total Score: 10 BHS COWS - Scale Resting Pulse: 0= [place] 80 or Below Sweatin= Chills/Flushing Restless Observation: 0= Sits Still Pupil Size: 0= Normal to Room Light Bone or Joint Aches: 1= Mild Discomfort Runny Nose/ Eye Tearin= Nasal Congestion GI Upset > 30mins: 2= Nausea/Diarrhea (no diarrhea) Tremor Observation of Outstretched Hands: 2= Slight Tremor Visible Yawning Observation: 1= 1-2x During Session Anxiety or Irritability: 2=Irritable/Anxious Goose Flesh Skin: 0=Smooth Skin COWS Score: 10 [facility] Progress Note (SOAP) Subjective: 29 years old male admitted on 08/09/19 for benzo and opiate withdrawal sx management treated with valium and methadone detox regimen patient is alert oriented x 3 speech clearly coherently discuss medication assisted treatment program [facility] picker narcan from pharmacy Objective: 08/11/19 11:31 Vital Signs Temperature 98.1 F 08/11/19 09:50 Pulse Rate 68 08/11/19 09:50 Respiratory Rate 18 08/11/19 09:50 Blood Pressure 114/66 08/11/19 09:50 O2 Sat by Pulse Oximetry (%) Laboratory Last Values WBC 4.7 K/mm3 (4.0-10.0) 08/10/19 08:20 RBC 4.60 M/mm3 (4.00-5.60) 08/10/19 08:20 Hgb 13.2 GM/dL (11.7-16.9) 08/10/19 08:20 Hct 39.3 % (35.4-49) 08/10/19 08:20 MCV 85.4 fl (80-96) 08/10/19 08:20 MCH 28.7 pg (25.7-33.7) 08/10/19 08:20 MCHC 33.6 g/dl (32.0-35.9) 08/10/19 08:20 RDW 13.4 % (11.9-15.9) 08/10/19 08:20 Plt Count 260 K/MM3 (134-434) 08/10/19 08:20 MPV 6.8 fl (7.5-11.1) L 08/10/19 08:20 Sodium 137 mmol/L (136-145) 08/10/19 08:20 Potassium 4.0 mmol/L (3.5-5.1) 08/10/19 08:20 Chloride 105 mmol/L (98-107) 08/10/19 08:20 Carbon Dioxide 28 mmol/L (21-32) 08/10/19 08:20 Anion Gap 5 MMOL/L (8-16) L 08/10/19 08:20 BUN 12.6 mg/dL (7-18) 08/10/19 08:20 Creatinine 0.8 mg/dL (0.55-1.3) 08/10/19 08:20 Est GFR (CKD-EPI)AfAm 137.96 08/10/19 08:20 Est GFR (CKD-EPI)NonAf 119.03 08/10/19 08:20 Random Glucose 107 mg/dL (74-106) H 08/10/19 08:20 Calcium 9.0 mg/dL (8.5-10.1) 08/10/19 08:20 Total Bilirubin 0.5 mg/dL (0.2-1) 08/10/19 08:20 AST 16 U/L (15-37) 08/10/19 08:20 ALT 25 U/L (13-61) 08/10/19 08:20 Alkaline Phosphatase 79 U/L (45-117) 08/10/19 08:20 Total Protein 7.3 g/dl (6.4-8.2) 08/10/19 08:20 Albumin 3.7 g/dl (3.4-5.0) 08/10/19 08:20 Urine Color Yellow 08/10/19 07:50 Urine Appearance Clear 08/10/19 07:50 Urine pH 7.5 (5.0-8.0) D 08/10/19 07:50 Ur Specific [place] 1.022 (1.010-1.035) 08/10/19 07:50 Urine Protein Negative (NEGATIVE) 08/10/19 07:50 Urine Glucose (UA) Negative (NEGATIVE) 08/10/19 07:50 Urine Ketones Negative (NEGATIVE) 08/10/19 07:50 Urine Blood Negative (NEGATIVE) 08/10/19 07:50 Urine Nitrite Negative (NEGATIVE) 08/10/19 07:50 Urine Bilirubin Negative (NEGATIVE) 08/10/19 07:50 Urine Urobilinogen 1.0 mg/dL (0.2-1.0) 08/10/19 07:50 Ur Leukocyte Esterase Negative (NEGATIVE) 08/10/19 07:50 RPR Titer Nonreactive (NONREACTIVE) 08/10/19 08:20 HIV 1&2 Antibody Screen Negative 08/10/19 08:20 HIV P24 Antigen Negative 08/10/19 08:20 lab noted Assessment: 08/11/19 11:31 benzo and opiate withdrawal sx Plan: continue valium and methadone detox regimen
[2019-08-11] MEDS: MELATONIN 5 MG TABLETS PO PRN (21:39)
[2019-08-11] MEDS: THIAMINE HCL 100 MG TABLET (FP) PO SCH (21:39)
[2019-08-11] MEDS: hydrOXYzine PAMOATE 25 MG CAPSULE (FP) PO PRN (21:39)
[2019-08-12] MEDS: METHOCARBAMOL 500 MG TABLET PO PRN ×3 (05:49→22:28)
[2019-08-12] MEDS ORDERED: diazePAM 5 MG TABLET PO ONE (06:00)
[2019-08-12] MEDS ORDERED: METHADONE HCL 10 MG TABLET (FOR DETOX USE ONLY) ONE (09:03)
[2019-08-12] MEDS ORDERED: METHADONE HCL 5 MG TABLET (FOR DETOX USE ONLY) ONE (09:04)
[2019-08-12] MEDS ORDERED: METHADONE (DETOX) 10 MG, METHADONE (DETOX) 5 MG PO ONE (10:00)
[2019-08-12] MEDS: diazePAM 5 MG TABLET PO PRN (10:02)
[2019-08-12] MEDS: PRENATAL VITAMINS W/ FOLIC ACID TABLET (FP) PO SCH (10:02)
--- NOTE | 2019-08-12 12:20 | PN ---
S CIWA - CIWA Score Nausea/Vomitin-No Nausea/No Vomiting Muscle Tremors: 2 Anxiety: 2 Agitation: 2 Paroxysmal Sweats: No Perspiration Orientation: 0-Oriented Tacttile Disturbances: 0-None Auditory Disturbances: 0-None Visual Disturbances: 0-None Headache: 0-None Present CIWA-Ar Total Score: 6 BHS COWS - Scale Resting Pulse: 0= [place] 80 or Below Sweatin= Chills/Flushing Restless Observation: 0= Sits Still Pupil Size: 1= Pupils >than Normal Bone or Joint Aches: 1= Mild Discomfort Runny Nose/ Eye Tearin= None GI Upset > 30mins: 1= Stomach Cramp Tremor Observation of Outstretched Hands: 1= Tremor [place], Not Seen Yawning Observation: 0= None Anxiety or Irritability: 1=Feels Anxious/Irritable Goose Flesh Skin: 0=Smooth Skin COWS Score: 6 S Progress Note (SOAP) Subjective: 29 years old male admitted on 08/09/19 for benzo and opiate withdrawal sx management treated with valium and methadone detox regimen patient determines to maintain sober patient agrees to consider medication assisted treatment program Objective: 08/12/19 12:20 Vital Signs Temperature 97.4 F L 08/12/19 09:26 Pulse Rate 73 08/12/19 09:26 Respiratory Rate 18 08/12/19 09:26 Blood Pressure 115/68 08/12/19 09:26 O2 Sat by Pulse Oximetry (%) Laboratory Last Values WBC 4.7 K/mm3 (4.0-10.0) 08/10/19 08:20 RBC 4.60 M/mm3 (4.00-5.60) 08/10/19 08:20 Hgb 13.2 GM/dL (11.7-16.9) 08/10/19 08:20 Hct 39.3 % (35.4-49) 08/10/19 08:20 MCV 85.4 fl (80-96) 08/10/19 08:20 MCH 28.7 pg (25.7-33.7) 08/10/19 08:20 MCHC 33.6 g/dl (32.0-35.9) 08/10/19 08:20 RDW 13.4 % (11.9-15.9) 08/10/19 08:20 Plt Count 260 K/MM3 (134-434) 08/10/19 08:20 MPV 6.8 fl (7.5-11.1) L 08/10/19 08:20 Sodium 137 mmol/L (136-145) 08/10/19 08:20 Potassium 4.0 mmol/L (3.5-5.1) 08/10/19 08:20 Chloride 105 mmol/L (98-107) 08/10/19 08:20 Carbon Dioxide 28 mmol/L (21-32) 08/10/19 08:20 Anion Gap 5 MMOL/L (8-16) L 08/10/19 08:20 BUN 12.6 mg/dL (7-18) 08/10/19 08:20 Creatinine 0.8 mg/dL (0.55-1.3) 08/10/19 08:20 Est GFR (CKD-EPI)AfAm 137.96 08/10/19 08:20 Est GFR (CKD-EPI)NonAf 119.03 08/10/19 08:20 Random Glucose 107 mg/dL (74-106) H 08/10/19 08:20 Calcium 9.0 mg/dL (8.5-10.1) 08/10/19 08:20 Total Bilirubin 0.5 mg/dL (0.2-1) 08/10/19 08:20 AST 16 U/L (15-37) 08/10/19 08:20 ALT 25 U/L (13-61) 08/10/19 08:20 Alkaline Phosphatase 79 U/L (45-117) 08/10/19 08:20 Total Protein 7.3 g/dl (6.4-8.2) 08/10/19 08:20 Albumin 3.7 g/dl (3.4-5.0) 08/10/19 08:20 Urine Color Yellow 08/10/19 07:50 Urine Appearance Clear 08/10/19 07:50 Urine pH 7.5 (5.0-8.0) D 08/10/19 07:50 Ur Specific [place] 1.022 (1.010-1.035) 08/10/19 07:50 Urine Protein Negative (NEGATIVE) 08/10/19 07:50 Urine Glucose (UA) Negative (NEGATIVE) 08/10/19 07:50 Urine Ketones Negative (NEGATIVE) 08/10/19 07:50 Urine Blood Negative (NEGATIVE) 08/10/19 07:50 Urine Nitrite Negative (NEGATIVE) 08/10/19 07:50 Urine Bilirubin Negative (NEGATIVE) 08/10/19 07:50 Urine Urobilinogen 1.0 mg/dL (0.2-1.0) 08/10/19 07:50 Ur Leukocyte Esterase Negative (NEGATIVE) 08/10/19 07:50 RPR Titer Nonreactive (NONREACTIVE) 08/10/19 08:20 HIV 1&2 Antibody Screen Negative 08/10/19 08:20 HIV P24 Antigen Negative 08/10/19 08:20 lab noted Assessment: 08/12/19 12:21 benzo and opiate withdrawal sx Plan: continue valium and methadone detox regimen
[2019-08-12] MEDS: hydrOXYzine PAMOATE 25 MG CAPSULE (FP) PO PRN (17:26)
[2019-08-12] MEDS: MELATONIN 5 MG TABLETS PO PRN (22:26)
[2019-08-12] MEDS: THIAMINE HCL 100 MG TABLET (FP) PO SCH (22:26)
[2019-08-13] MEDS: hydrOXYzine PAMOATE 25 MG CAPSULE (FP) PO PRN ×3 (06:01→22:22)
[2019-08-13] MEDS ORDERED: METHADONE HCL 10 MG TABLET (FOR DETOX USE ONLY) PO ONE (10:00)
[2019-08-13] MEDS: PRENATAL VITAMINS W/ FOLIC ACID TABLET (FP) PO SCH (10:23)
--- NOTE | 2019-08-13 12:58 | PN ---
[facility] CIWA - CIWA Score Nausea/Vomitin-No Nausea/No Vomiting Muscle Tremors: 1-None Visible, but [place] Anxiety: 1-Mildly Anxious Agitation: 1-Slight > Activity Paroxysmal Sweats: No Perspiration Orientation: 0-Oriented Tacttile Disturbances: 0-None Auditory Disturbances: 0-None Visual Disturbances: 0-None Headache: 0-None Present CIWA-Ar Total Score: 3 S COWS - Scale Resting Pulse: 0= [place] 80 or Below Sweatin= Chills/Flushing Restless Observation: 0= Sits Still Pupil Size: 0= Normal to Room Light Bone or Joint Aches: 0= None Runny Nose/ Eye Tearin= None GI Upset > 30mins: 0= None Tremor Observation of Outstretched Hands: 1= Tremor [place], Not Seen Yawning Observation: 0= None Anxiety or Irritability: 1=Feels Anxious/Irritable Goose Flesh Skin: 0=Smooth Skin COWS Score: 3 S Progress Note (SOAP) Subjective: 29 years old male admitted on 08/09/19 for benzo and opiate withdrawal sx managemetn treated with valium and methadone detox regimen feeling better discuss medication assisted treatment program chart picker narcan from pharmacy Objective: 08/13/19 12:59 Vital Signs Temperature 98.9 F 08/13/19 09:12 Pulse Rate 61 08/13/19 09:12 Respiratory Rate 18 08/13/19 09:12 Blood Pressure 119/73 08/13/19 09:12 O2 Sat by Pulse Oximetry (%) Laboratory Last Values WBC 4.7 K/mm3 (4.0-10.0) 08/10/19 08:20 RBC 4.60 M/mm3 (4.00-5.60) 08/10/19 08:20 Hgb 13.2 GM/dL (11.7-16.9) 08/10/19 08:20 Hct 39.3 % (35.4-49) 08/10/19 08:20 MCV 85.4 fl (80-96) 08/10/19 08:20 MCH 28.7 pg (25.7-33.7) 08/10/19 08:20 MCHC 33.6 g/dl (32.0-35.9) 08/10/19 08:20 RDW 13.4 % (11.9-15.9) 08/10/19 08:20 Plt Count 260 K/MM3 (134-434) 08/10/19 08:20 MPV 6.8 fl (7.5-11.1) L 08/10/19 08:20 Sodium 137 mmol/L (136-145) 08/10/19 08:20 Potassium 4.0 mmol/L (3.5-5.1) 08/10/19 08:20 Chloride 105 mmol/L (98-107) 08/10/19 08:20 Carbon Dioxide 28 mmol/L (21-32) 08/10/19 08:20 Anion Gap 5 MMOL/L (8-16) L 08/10/19 08:20 BUN 12.6 mg/dL (7-18) 08/10/19 08:20 Creatinine 0.8 mg/dL (0.55-1.3) 08/10/19 08:20 Est GFR (CKD-EPI)AfAm 137.96 08/10/19 08:20 Est GFR (CKD-EPI)NonAf 119.03 08/10/19 08:20 Random Glucose 107 mg/dL (74-106) H 08/10/19 08:20 Calcium 9.0 mg/dL (8.5-10.1) 08/10/19 08:20 Total Bilirubin 0.5 mg/dL (0.2-1) 08/10/19 08:20 AST 16 U/L (15-37) 08/10/19 08:20 ALT 25 U/L (13-61) 08/10/19 08:20 Alkaline Phosphatase 79 U/L (45-117) 08/10/19 08:20 Total Protein 7.3 g/dl (6.4-8.2) 08/10/19 08:20 Albumin 3.7 g/dl (3.4-5.0) 08/10/19 08:20 Urine Color Yellow 08/10/19 07:50 Urine Appearance Clear 08/10/19 07:50 Urine pH 7.5 (5.0-8.0) D 08/10/19 07:50 Ur Specific [place] 1.022 (1.010-1.035) 08/10/19 07:50 Urine Protein Negative (NEGATIVE) 08/10/19 07:50 Urine Glucose (UA) Negative (NEGATIVE) 08/10/19 07:50 Urine Ketones Negative (NEGATIVE) 08/10/19 07:50 Urine Blood Negative (NEGATIVE) 08/10/19 07:50 Urine Nitrite Negative (NEGATIVE) 08/10/19 07:50 Urine Bilirubin Negative (NEGATIVE) 08/10/19 07:50 Urine Urobilinogen 1.0 mg/dL (0.2-1.0) 08/10/19 07:50 Ur Leukocyte Esterase Negative (NEGATIVE) 08/10/19 07:50 RPR Titer Nonreactive (NONREACTIVE) 08/10/19 08:20 HIV 1&2 Antibody Screen Negative 08/10/19 08:20 HIV P24 Antigen Negative 08/10/19 08:20 lab noted Assessment: 08/13/19 12:59 benzo and opiate withdrawal sx Plan: continue valium and methadone detox regimen
[2019-08-13] MEDS: THIAMINE HCL 100 MG TABLET (FP) PO SCH (22:22)
[2019-08-13] MEDS: MELATONIN 5 MG TABLETS PO PRN (22:22)
[2019-08-13] MEDS: METHOCARBAMOL 500 MG TABLET PO PRN (22:23)
[2019-08-14] MEDS ORDERED: METHADONE HCL 5 MG TABLET (FOR DETOX USE ONLY) PO ONE (06:00)
[2019-08-14 06:03] VITALS: BP 127/82; PULSE 50; TEMP 97.2
--- NOTE | 2019-08-14 08:24 | PN ---
[facility] CIWA - CIWA Score Nausea/Vomitin-No Nausea/No Vomiting Muscle Tremors: 1-None Visible, but [place] Anxiety: 1-Mildly Anxious Agitation: 1-Slight > Activity Paroxysmal Sweats: No Perspiration Orientation: 0-Oriented Tacttile Disturbances: 0-None Auditory Disturbances: 0-None Visual Disturbances: 0-None Headache: 0-None Present CIWA-Ar Total Score: 3 S COWS - Scale Resting Pulse: 0= [place] 80 or Below Sweatin= No chills or Flushing Restless Observation: 0= Sits Still Pupil Size: 0= Normal to Room Light Bone or Joint Aches: 0= None Runny Nose/ Eye Tearin= None GI Upset > 30mins: 0= None Tremor Observation of Outstretched Hands: 0= None Yawning Observation: 0= None Anxiety or Irritability: 1=Feels Anxious/Irritable Goose Flesh Skin: 0=Smooth Skin COWS Score: 1 [facility] Progress Note (SOAP) Subjective: alert,no complaint Objective: 08/14/19 08:22 Vital Signs Temp 97.2 F L 08/14/19 06:02 Pulse 50 L 08/14/19 06:02 Resp 18 08/14/19 06:02 BP 127/82 08/14/19 06:02 Pulse Ox Intake & Output 08/13/19 08/13/19 08/14/19 11:59 23:59 11:59 Other: Voiding Method Toilet Toilet Assessment: 08/14/19 08:23 detox completed,no withdrawal symptom Plan: discharge today,follow up with after care program as arrangement
--- NOTE | 2019-08-14 08:27 | DS ---
[facility] Detox Discharge Summary Admission Date: 08/09/19 Discharge Date: 08/14/19 - History Present History: Opioid Dependence, Sedative Dependence Additional Comments: follow up with after care program as arrangement - Physical Exam Results Vital Signs: Vital Signs Temperature 97.2 F L 08/14/19 06:02 Pulse Rate 50 L 08/14/19 06:02 Respiratory Rate 18 08/14/19 06:02 Blood Pressure 127/82 08/14/19 06:02 O2 Sat by Pulse Oximetry (%) Pertinent Admission Physical Exam Findings: withdrawal sign Vital Signs Temperature 97.2 F L 08/14/19 06:02 Pulse Rate 50 L 08/14/19 06:02 Respiratory Rate 18 08/14/19 06:02 Blood Pressure 127/82 08/14/19 06:02 O2 Sat by Pulse Oximetry (%) Laboratory Last Values WBC 4.7 K/mm3 (4.0-10.0) 08/10/19 08:20 RBC 4.60 M/mm3 (4.00-5.60) 08/10/19 08:20 Hgb 13.2 GM/dL (11.7-16.9) 08/10/19 08:20 Hct 39.3 % (35.4-49) 08/10/19 08:20 MCV 85.4 fl (80-96) 08/10/19 08:20 MCH 28.7 pg (25.7-33.7) 08/10/19 08:20 MCHC 33.6 g/dl (32.0-35.9) 08/10/19 08:20 RDW 13.4 % (11.9-15.9) 08/10/19 08:20 Plt Count 260 K/MM3 (134-434) 08/10/19 08:20 MPV 6.8 fl (7.5-11.1) L 08/10/19 08:20 Sodium 137 mmol/L (136-145) 08/10/19 08:20 Potassium 4.0 mmol/L (3.5-5.1) 08/10/19 08:20 Chloride 105 mmol/L (98-107) 08/10/19 08:20 Carbon Dioxide 28 mmol/L (21-32) 08/10/19 08:20 Anion Gap 5 MMOL/L (8-16) L 08/10/19 08:20 BUN 12.6 mg/dL (7-18) 08/10/19 08:20 Creatinine 0.8 mg/dL (0.55-1.3) 08/10/19 08:20 Est GFR (CKD-EPI)AfAm 137.96 08/10/19 08:20 Est GFR (CKD-EPI)NonAf 119.03 08/10/19 08:20 Random Glucose 107 mg/dL (74-106) H 08/10/19 08:20 Calcium 9.0 mg/dL (8.5-10.1) 08/10/19 08:20 Total Bilirubin 0.5 mg/dL (0.2-1) 08/10/19 08:20 AST 16 U/L (15-37) 08/10/19 08:20 ALT 25 U/L (13-61) 08/10/19 08:20 Alkaline Phosphatase 79 U/L (45-117) 08/10/19 08:20 Total Protein 7.3 g/dl (6.4-8.2) 08/10/19 08:20 Albumin 3.7 g/dl (3.4-5.0) 08/10/19 08:20 Urine Color Yellow 08/10/19 07:50 Urine Appearance Clear 08/10/19 07:50 Urine pH 7.5 (5.0-8.0) D 08/10/19 07:50 Ur Specific [place] 1.022 (1.010-1.035) 08/10/19 07:50 Urine Protein Negative (NEGATIVE) 08/10/19 07:50 Urine Glucose (UA) Negative (NEGATIVE) 08/10/19 07:50 Urine Ketones Negative (NEGATIVE) 08/10/19 07:50 Urine Blood Negative (NEGATIVE) 08/10/19 07:50 Urine Nitrite Negative (NEGATIVE) 08/10/19 07:50 Urine Bilirubin Negative (NEGATIVE) 08/10/19 07:50 Urine Urobilinogen 1.0 mg/dL (0.2-1.0) 08/10/19 07:50 Ur Leukocyte Esterase Negative (NEGATIVE) 08/10/19 07:50 RPR Titer Nonreactive (NONREACTIVE) 08/10/19 08:20 HIV 1&2 Antibody Screen Negative 08/10/19 08:20 HIV P24 Antigen Negative 08/10/19 08:20 and symptom - Treatment Hospital Course: Detox Protocol Followed, Detoxed Safely, Responded well, Discharged Condition Good - Medication Discharge Medications: Ambulatory Orders Naloxone HCl [Narcan] 4 mg NS ASDIR PRN #1 spray 08/11/19 - Diagnosis (1) Opioid dependence with withdrawal Status: Chronic (2) PCP (phencyclidine) abuse Status: Acute (3) PCP dependence Status: Chronic (4) Sedative, hypnotic or anxiolytic dependence with withdrawal, uncomplicated Status: Chronic (5) IVDU (intravenous drug user) Status: Acute - AMA Did Patient Leave Against Medical Advice: No
== END 2019-08-14 06:32 | disposition home or self-care (01) | DRG 773 ==
LOC: YASAS 11:25 → Y3N 15:28
PROVIDERS: ADMIT Allergy & Immunology; ATTEND Allergy & Immunology
PROC: HZ2ZZZZ Detoxification Services for Substance Abuse Treatment (ICD-10-PCS; principal; 2019-08-09)
DX: F11.23 Opioid dependence with withdrawal (principal); F13.230 Sedative, hypnotic or anxiolytic dependence with withdrawal, uncomplicated; F16.20 Hallucinogen dependence, uncomplicated; F17.210 Nicotine dependence, cigarettes, uncomplicated; J45.909 Unspecified asthma, uncomplicated
CPT/HCPCS: 36415; 80053; 81003; 85027; 86593; 87389; J0735

== ENCOUNTER 2020-03-30 09:55 | Inpatient (IN) | payer OTHER ==
--- NOTE | 2020-03-30 10:02 | BHS.RME ---
Physical/Psych/Mental Status - Behavior General Behavior: Increased activity (restlessness, agitation) - Cooperativeness Cooperativeness: Hostile - Thinking Thought Processes: Tight, Logical, Goal Directed - Physical Health Problems Is patient presently having any pain?: No Does patient presently have any injuries (include location): No Does patient currently have a fever: No Is patient : No COWS - Scale Resting Pulse: 0= [place] 80 or Below Sweatin= No chills or Flushing Restless Observation: 0= Sits Still (Patient Name: Florentino Jaime Date: 1990 Address: [address] [place] [address] [address] [place] [address] Sex: Male Rx Written Rx Dispensed Drug Quantity Days Supply Prescriber Name Payment Method Dispenser 03/14/2020 03/26/2020 buprenorphine-naloxone 8-2 mg sl film 90 30 Bre Miller (DAVIDC) Insurance [facility] #[id number] 02/23/2020 02/25/2020 buprenorphine-naloxone 8-2 mg sl film 90 30 Jennifer Chatterjee Insurance [facility] #[id number] 01/22/2020 01/25/2020 buprenorphine-naloxone 8-2 mg sl film 90 30 Leta Hernandez Insurance [facility] #[id number] 12/08/2019 12/17/2019 buprenorphine-naloxone 8-2 mg sl film 90 30 China Emanuel Y (MD) Insurance [facility] #[id number] 10/14/2019 11/15/2019 buprenorphine-naloxone 8-2 mg sl film 90 30 Ricki Venegas MD Insurance [facility] #[id number] 10/14/2019 10/14/2019 buprenorphine-naloxone 8-2 mg sl film 90 30 Ricki Venegas MD Insurance [facility] #[id number] 07/28/2019 09/01/2019 buprenorphine-naloxone 8-2 mg sl film 90 30 Leta Hernandez Insurance [facility] #[id number] 07/28/2019 07/31/2019 buprenorphine-naloxone 8-2 mg sl film 90 30 Leta Hernandez Insurance [facility] #[id number] 05/19/2019 06/23/2019 buprenorphine-naloxone 8-2 mg sl film 90 30 Ricki Venegas MD Insurance [facility] #[id number] 05/19/2019 05/22/2019 buprenorphine-naloxone 8-2 mg sl film 90 30 Ricki Venegas MD [facility] #[id number] 03/02/2019 04/22/2019 buprenorphine-naloxone 8-2 mg sl film 90 30 Ricki Venegas MD [facility] #[id number]) Pupil Size: 0= Normal to Room Light Bone or Joint Aches: 0= None Runny Nose/ Eye Tearin= None GI Upset > 30mins: 0= None Tremor Observation: 0= None Yawning Observation: 0= None Anxiety or Irritability: 0= None Goose Flesh Skin: 0=Smooth Skin COWS Score: 0 Treatment Recommendation - Level of Care Level of Care: Outpatient (Patient seen last evening found to have large amounts of contraband.)
--- NOTE | 2020-03-30 12:50 | HP ---
COWS - Scale Resting Pulse: 1= [place] 81-100 Sweatin= Chills/Flushing Restless Observation: 1= Difficult to Sit Still (Patient Name: Florentino Jamie Date: 1990 Address: [address] [place] [address] Sex: Male Rx Written Rx Dispensed Drug Quantity Days Supply Prescriber Name Payment Method Dispenser 03/14/2020 03/26/2020 buprenorphine-naloxone 8-2 mg sl film 90 30 Bre Miller ([place]) Insurance [facility] #[id number] 02/23/2020 02/25/2020 buprenorphine-naloxone 8-2 mg sl film 90 30 PercyJennifer lovett Insurance [facility] #[id number] 01/22/2020 01/25/2020 buprenorphine-naloxone 8-2 mg sl film 90 30 Leta Hernandez Insurance [facility] #[id number] 12/08/2019 12/17/2019 buprenorphine-naloxone 8-2 mg sl film 90 30 China Emanuel Y (MD) Insurance [facility] #[id number] 10/14/2019 11/15/2019 buprenorphine-naloxone 8-2 mg sl film 90 30 Ricki Venegas MD Insurance [facility] #[id number] 10/14/2019 10/14/2019 buprenorphine-naloxone 8-2 mg sl film 90 30 Ricki Venegas MD Insurance [facility] #[id number] 07/28/2019 09/01/2019 buprenorphine-naloxone 8-2 mg sl film 90 30 Leta Hernandez Insurance [facility] #[id number] 07/28/2019 07/31/2019 buprenorphine-naloxone 8-2 mg sl film 90 30 Leta Hernandez Insurance [facility] #[id number] 05/19/2019 06/23/2019 buprenorphine-naloxone 8-2 mg sl film 90 30 Ricki Venegas MD Insurance [facility] #[id number] 05/19/2019 05/22/2019 buprenorphine-naloxone 8-2 mg sl film 90 30 Ricki Venegas MD Insurance [facility] #[id number] 03/02/2019 04/22/2019 buprenorphine-naloxone 8-2 mg sl film 90 30 Ricki Venegas MD Insurance [facility] #[id number]) Pupil Size: 1= Pupils >than Normal Bone or Joint Aches: 1= Mild Discomfort Runny Nose/ Eye Tearin= None GI Upset > 30mins: 0= None Tremor Observation: 1= Tremor [place], Not Seen Yawning Observation: 0= None Anxiety or Irritability: 2=Irritable/Anxious Goose Flesh Skin: 0=Smooth Skin COWS Score: 8 CIWA Score - Admission Criteria [facility] Guidelines: Admission for Medically Managed Detox: Requires at least one of the followin. CIWA greater than 12 2. Seizures within the past 24 hours 3. Delirium tremens within the past 24 hours 4. Hallucinations within the past 24 hours 5. Acute intervention needed for co occurring medical disorder 6. Acute intervention needed for co occurring psychiatric disorder 7. Severe withdrawal that cannot be handled at a lower level of care (continued vomiting, continued diarrhea, abnormal vital signs) requiring intravenous medication and/or fluids 8. Admitting History and Physical - Admission Chief Complaint: " I need to detox so I can go back to my suboxone program." History of Present Illness: 30 year old male with history of opioid dependence with intoxication and mild withdrawal. Patient has had multiple admissions for detox. Was seen yesterday evening but not admitted due to recent prescription of suboxone which he states he did not utilize. Instead he has been using up to 2-3 bundles of heroin daily IN, and has not had an overdose. He does not carry a narcan kit. Two prior admissions were AMA discharges. He has agreed to sign contract for completion of detox and follow aftercare with his suboxone provider. They would not re-initiate his suboxone without having detoxed from heroin first. Nicotine"1/2 pack daily since age 16 PMH: Asthma Psurg: None Psych: Anxiety Disorder Patient meets criteria for detox as he has multiple failure of detox in past and has poor recovery for environment and has failed MAT in recent past. History Source: Patient Limitations to Obtaining History: No Limitations - Past Surgical History Past Surgical History: Yes: None - Smoking History Smoking history: Unknown if ever smoked Have you smoked in the past 12 months: Yes Aproximately how many cigarettes per day: 10 - Alcohol/Substance Use Hx Alcohol Use: No Admission ROS [facility] - [facility] Allergies/Adverse Reactions: Allergies Allergy/AdvReac Type Severity Reaction Status Date / Time No Known Allergies Allergy Verified 03/30/20 12:37 Exam Limitations: No Limitations - Ebola screening Have you traveled outside of the country in the last 21 days: No Have you had contact with anyone from an Ebola affected area: No Have you been sick,other than usual withdrawal symptoms: No Do you have a fever: No - Review of Systems Constitutional: No Symptoms Reported, Chills EENT: reports: No Symptoms Reported Respiratory: reports: No Symptoms reported Cardiac: reports: No Symptoms Reported GI: reports: No Symptoms Reported : reports: No Symptoms Reported Musculoskeletal: reports: No Symptoms Reported Integumentary: reports: No Symptoms Reported Neuro: reports: No Symptoms reported Endocrine: reports: No Symptoms Reported Hematology: reports: No Symptoms Reported Psychiatric: reports: Judgement Intact, Mood/Affect Appropiate, Orientated x3, Agitated, Anxious Other Systems: Reviewed and Negative Patient History - Patient Medical History Hx Anemia: No Hx Asthma: Yes (ON MDI) Hx Chronic Obstructive Pulmonary Disease (COPD): No Hx Cancer: No Hx Cardiac Disorders: No Hx Congestive Heart Failure: No Hx Hypertension: No Hx Hypercholesterolemia: No Hx Pacemaker: No HX Cerebrovascular Accident: No Hx Seizures: No Hx Dementia: No Hx Diabetes: No Hx Gastrointestinal Disorders: No Hx Liver Disease: No Hx Genitourinary Disorders: No Hx Sexually Transmitted Disorders: No Hx Renal Disease (ESRD): No Hx Thyroid Disease: No Hx Human Immunodeficiency Virus (HIV): No (NEGATIVE 2019 IN SEPTEMBER) Hx Hepatitis C: No (DENIES) Hx Depression: No Hx Suicide Attempt: No (Denies suicidal ideation at this time) Hx Bipolar Disorder: No Hx Schizophrenia: No - Patient Surgical History Past Surgical History: No Hx Neurologic Surgery: No Hx Cataract Extraction: No Hx Cardiac Surgery: No Hx Lung Surgery: No Hx Breast Surgery: No Hx Breast Biopsy: No Hx Abdominal Surgery: No Hx Appendectomy: No Hx Cholecystectomy: No Hx Genitourinary Surgery: No Hx Section: No Hx Orthopedic Surgery: No Anesthesia Reaction: No - PPD History Previous Implant?: Yes Documented Results: Negative w/proof Implanted On Prior R Admission?: Yes Date: 08/11/19 Results: neg PPD to be Administered?: No - Smoking Cessation Smoking history: Unknown if ever smoked Have you smoked in the past 12 months: Yes Aproximately how many cigarettes per day: 10 Cigars Per Day: 10 Hx Chewing Tobacco Use: No Initiated information on smoking cessation: Yes 'Breaking Loose' booklet given: 03/30/20 - Substances abused Heroin Other (specify): 2-3 bundles Substance route: Inhalation Frequency: Daily Amount used: 2-3 bundles Age of first use: 16 Date of last use: 03/30/20 Alprazolam (Xanax) Other (specify): 2mg 1-2 tabs Substance route: Oral Frequency: Daily Amount used: 2 mg 1-2 tabs Age of first use: 20 Date of last use: 03/29/20 PCP Substance route: Smoking Frequency: Daily Amount used: $20-30 Age of first use: 24 Date of last use: 03/29/20 Admission Physical Exam [facility] - Physical General Appearance: Yes: No Apparent Distress, Nourished, Appropriately Dressed, Irritable, Sweating, Anxious HEENTM: Yes: EOMI, Hearing grossly Normal, Normal ENT Inspection, Normocephalic, Normal Voice, TEGAN, Pharynx Normal, Tm's normal Respiratory: Yes: Chest Non-Tender, Lungs Clear, Normal Breath Sounds, No Respiratory Distress, No Accessory Muscle Use Neck: Yes: No masses,lesions,Nodules, Supple, Trachea in good position Breast: Yes: Within Normal Limits Cardiology: Yes: Regular Rhythm, Regular Rate, S1, S2 Abdominal: Yes: Normal Bowel Sounds, Non Tender, Flat, Soft Genitourinary: Yes: Within Normal Limits Back: Yes: Normal Inspection Musculoskeletal: Yes: full range of Motion, Gait Steady, Pelvis Stable Extremities: Yes: Normal Capillary Refill, Normal Inspection, Normal Range of Motion, Non-Tender Neurological: Yes: business support administrator II-XII NML intact, Fully Oriented, Alert, Motor Strength 5/5, Normal Mood/Affect, Normal Response Integumentary: Yes: Normal Color, Dry, Warm Lymphatic: Yes: Within Normal Limits - Diagnostic (1) Asthma Current Visit: Yes Status: Chronic Qualifiers: Asthma severity: mild Asthma persistence: intermittent Asthma complication type: uncomplicated Qualified Code(s): J45.20 - Mild intermittent asthma, uncomplicated (2) Nicotine dependence Current Visit: Yes Status: Chronic Qualifiers: Nicotine product type: cigarettes Substance use status: uncomplicated Qualified Code(s): F17.210 - Nicotine dependence, cigarettes, uncomplicated (3) Opioid dependence with withdrawal Current Visit: Yes Status: Chronic (4) IVDU (intravenous drug user) Current Visit: Yes Status: Acute (5) Insomnia Current Visit: Yes Status: Acute Qualifiers: Insomnia type: unspecified Qualified Code(s): G47.00 - Insomnia, unspecified (6) PCP (phencyclidine) abuse Status: Acute (7) Sedative, hypnotic or anxiolytic dependence with withdrawal, uncomplicated Current Visit: Yes Status: Chronic Cleared for Admission [facility] - Detox or Rehab [facility] Level of Care: Medically Managed Detox Regimen/Protocol: Methadone Claeared for Rehab Admission: No Screened but not Admitted - Documentation of Visit Screened but not Admitted: No Breathalyzer - Breathalyzer Breathalyzer: 0 Urine Drug Screen - Test Device Lot number: [id number] Expiration date: 04/29/21 - Control Is test valid?: Yes - Results Drug screen NEGATIVE: No Urine drug screen results: MOP-Opiates, BZO-Benzodiazepines Inpatient Rehab Admission - Rehab Decision to Admit Inpatient rehab admission?: No
[2020-03-30 12:53] VITALS: BMI 29.0
[2020-03-30] MEDS ORDERED: MAG HYDROX/AL HYDROX/SIMETH 30 ML UNIT-DOSE CUP PO PRN (12:54)
[2020-03-30] MEDS ORDERED: cloNIDine HCL 0.1 MG TABLET PO PRN (12:54)
[2020-03-30] MEDS ORDERED: MAGNESIUM CITRATE 300 ML BOTTLE PO PRN (12:54)
[2020-03-30] MEDS ORDERED: MAGNESIUM HYDROX 2400MG/30ML ORAL SUSPENSION 30 ML CUP PO PRN (12:54)
[2020-03-30] MEDS ORDERED: BISMUTH SUBSALICYLATE 524 MG/30 ML UD PO PRN (12:54)
[2020-03-30] MEDS ORDERED: NICOTINE POLACRILEX 2 MG GUM BUC PRN (12:54)
[2020-03-30] MEDS ORDERED: MENTHOL/PHENOL 1 EACH UD MM PRN (12:54)
[2020-03-30] MEDS ORDERED: IBUPROFEN 400 MG TABLET (FP) PO PRN (12:54)
[2020-03-30] MEDS ORDERED: METHOCARBAMOL 500 MG TABLET PO PRN (12:54)
[2020-03-30] MEDS ORDERED: ACETAMINOPHEN 325 MG TABLET (FP) PO PRN ×2 (12:54)
[2020-03-30] MEDS ORDERED: ALBUTEROL SO4 HFA INHALER IH PRN (13:09)
[2020-03-30] MEDS ORDERED: METHADONE HCL 10 MG TABLET (FOR DETOX USE ONLY) PO ONE (13:30)
[2020-03-30] MEDS ORDERED: ONDANSETRON *ODT* 4 MG TABLET SL ONE (13:30)
[2020-03-30] MEDS ORDERED: hydrOXYzine PAMOATE 25 MG CAPSULE (FP) PO SCH (14:00)
[2020-03-30] MEDS: PRENATAL VITAMINS W/ FOLIC ACID TABLET (FP) PO SCH (14:04)
[2020-03-30] MEDS: NICOTINE 7 MG/24 HOURS TOPICAL PATCH TD SCH (14:09)
[2020-03-30] MEDS ORDERED: LORazepam 1 MG TABLET PO PRN (14:20)
--- NOTE | 2020-03-30 14:43 | CONSULT ---
[facility] Psychiatric Consult - Data Date of interview: 03/30/20 Admission source: Self-referred Identifying data: Mr Jaime is a 30 years old single male, employed in construction, domiciled seeking detox treatment for opioid, benzodiazepine and Phencyclidine Substance Abuse History: Reports history of heroin, xanax and pcp use. Refer to addiction counselor's summary for further information Medical History: Significant for bronchial asthma. Smokes 10 cigarette daily Psychiatric History: Denies history of previous psychiatric treatment. However, reports sleeping poorly Physical/Sexual Abuse/Trauma History: Denies history of abuse as a child or DV relationship as an adult Mental Status Exam - Mental Status Exam Alert and Oriented to: Time, Place, Person Cognitive Function: Fair Patient Appearance: Well Groomed Mood: Hopeful, Euthymic Patient Behavior: Cooperative Speech Pattern: Clear Voice Loudness: Normal Thought Process: Intact, Goal Oriented Hallucinations: Denies Suicidal Ideation: Denies Homicidal Ideation: Denies Insight/Judgement: Poor Sleep: Poorly Appetite: Good Muscle strength/Tone: Normal Gait/Station: Normal Psychiatric Findings - Problem List ([place] 1, 2,3) (1) Substance-induced sleep disorder Current Visit: Yes Status: Acute (2) Opioid dependence with withdrawal Current Visit: Yes Status: Acute (3) Sedative, hypnotic or anxiolytic dependence with withdrawal, uncomplicated Current Visit: Yes Status: Acute (4) PCP (phencyclidine) abuse Current Visit: No Status: Acute (5) Nicotine dependence Current Visit: Yes Status: Chronic Qualifiers: Nicotine product type: cigarettes Substance use status: uncomplicated Qualified Code(s): F17.210 - Nicotine dependence, cigarettes, uncomplicated (6) Asthma Current Visit: Yes Status: Chronic Qualifiers: Asthma severity: mild Asthma persistence: intermittent Asthma complication type: uncomplicated Qualified Code(s): J45.20 - Mild intermittent asthma, uncomplicated - Initial Treatment Plan Initial Treatment Plan: 1) Start Belsomra 10 mg po HS prn for insomnia. 2) Continue inpatient detoxification
[2020-03-30] MEDS ORDERED: hydrOXYzine PAMOATE 25 MG CAPSULE (FP) PO PRN (14:46)
[2020-03-30] MEDS: LORazepam 2 MG TABLET PO SCH ×2 (17:31→22:19)
[2020-03-30] MEDS ORDERED: SUVOREXANT 10 MG TABLET PO PRN (22:00)
[2020-03-30] MEDS ORDERED: MELATONIN 5 MG TABLETS PO SCH (22:00)
[2020-03-30] MEDS ORDERED: THIAMINE HCL 100 MG TABLET (FP) PO SCH (22:00)
[2020-03-31] MEDS: LORazepam 2 MG TABLET PO SCH ×2 (05:15→10:15)
[2020-03-31] MEDS ORDERED: METHADONE HCL 5 MG TABLET (FOR DETOX USE ONLY) ONE (08:44)
[2020-03-31] MEDS ORDERED: METHADONE HCL 10 MG TABLET (FOR DETOX USE ONLY) ONE (08:45)
[2020-03-31] MEDS ORDERED: METHADONE (DETOX) 20 MG, METHADONE (DETOX) 5 MG PO ONE (10:00)
--- NOTE | 2020-03-31 10:12 | PN ---
[facility] CIWA - CIWA Score Nausea/Vomitin Muscle Tremors: 2 Anxiety: 2 Agitation: 2 Paroxysmal Sweats: No Perspiration Orientation: 0-Oriented Tacttile Disturbances: 1-Very Mild Itch/Numbness Auditory Disturbances: 0-None Visual Disturbances: 0-None Headache: 2-Mild CIWA-Ar Total Score: 11 [facility] COWS - Scale Resting Pulse: 0= [place] 80 or Below Sweatin= No chills or Flushing Restless Observation: 3= Extraneous Movement Pupil Size: 1= Pupils >than Normal Bone or Joint Aches: 2= Severe Diffuse Aches Runny Nose/ Eye Tearin= Runny Nose/Eyes GI Upset > 30mins: 2= Nausea/Diarrhea Tremor Observation of Outstretched Hands: 2= Slight Tremor Visible Yawning Observation: 1= 1-2x During Session Anxiety or Irritability: 2=Irritable/Anxious Goose Flesh Skin: 0=Smooth Skin COWS Score: 15 S Progress Note (SOAP) Subjective: alert,irritable,anxious,interrupted sleep,tremor,pain in the body and back,nausea,diarrhea Objective: 03/31/20 10:11 Vital Signs Temperature 97.3 F L 03/31/20 08:35 Pulse Rate 69 03/31/20 08:35 Respiratory Rate 17 03/31/20 08:35 Blood Pressure 111/79 03/31/20 08:35 O2 Sat by Pulse Oximetry (%) 96 03/31/20 05:48 03/31/20 10:11 labs pending Assessment: 03/31/20 10:11 withdrawal symptom Plan: continue detox methadone and valium regimen
--- NOTE | 2020-03-31 10:13 | PN ---
[facility] Progress Note Note: addendum continue detox methadone and ativan regimen
[2020-03-31] MEDS: PRENATAL VITAMINS W/ FOLIC ACID TABLET (FP) PO SCH (10:15)
[2020-03-31] MEDS: NICOTINE 7 MG/24 HOURS TOPICAL PATCH TD SCH (10:15)
[2020-03-31 10:47] LABS: HEMATOCRIT 36.4 % (35.4-49); HEMOGLOBIN 12.2 GM/dL (11.7-16.9); MCH 29.1 pg (25.7-33.7); MCHC 33.4 g/dl (32.0-35.9); MEAN CELL VOLUME 87.2 fl (80-96); PLATELET COUNT 305 K/MM3 (134-434); RBC 4.18 M/mm3 (4.00-5.60); RDW 13.2 % (11.9-15.9)
[2020-03-31 10:48] LABS: ALBUMIN 3.4 g/dl (3.4-5.0); BILIRUBIN,TOTAL 0.3 mg/dL (0.2-1); BLOOD UREA NITROGEN 14.8 mg/dL (7-18); CALCIUM 8.9 mg/dL (8.5-10.1); CREATININE 0.8 mg/dL (0.55-1.3); POTASSIUM 4.1 mmol/L (3.5-5.1); TOT PROT 7.4 g/dl (6.4-8.2)
[2020-03-31 13:17] VITALS: BP 157/75; PULSE 76; TEMP 97.5
--- NOTE | 2020-03-31 17:32 | DS ---
[facility] Detox Discharge Summary Admission Date: 03/30/20 - History Additional Comments: advised by nursing that pt is being involuntarily discharged . pt ambulating freely . Vital Signs - 24 hr 03/30/20 03/31/20 03/31/20 20:40 03:25 05:48 Temperature 97.7 F 97.3 F L Pulse Rate 69 76 Respiratory 18 18 18 Rate Blood Pressure 140/79 121/73 O2 Sat by Pulse 95 96 Oximetry (%) 03/31/20 03/31/20 03/31/20 08:35 13:16 13:17 Temperature 97.3 F L 97.5 F L Pulse Rate 69 76 Respiratory 17 19 Rate Blood Pressure 111/79 157/75 O2 Sat by Pulse 99 Oximetry (%) - Physical Exam Results Vital Signs: Vital Signs Temperature 97.5 F L 03/31/20 13:16 Pulse Rate 76 03/31/20 13:16 Respiratory Rate 19 03/31/20 13:16 Blood Pressure 157/75 03/31/20 13:16 O2 Sat by Pulse Oximetry (%) 99 03/31/20 13:17 - Medication Discharge Medications: Ambulatory Orders Naloxone HCl [Narcan] 4 mg NS ASDIR PRN #1 spray 08/11/19 Albuterol Sulfate Inhaler - [Ventolin Hfa Inhaler -] 2 inh PO Q6H PRN 03/30/20 Buprenorphine/Naloxone [Suboxone 8Mg/2Mg Sl Film -] 1 each SL TID 03/30/20
[2020-04-01] MEDS ORDERED: LORazepam 1 MG TABLET PO SCH (05:00)
[2020-04-01] MEDS ORDERED: METHADONE HCL 10 MG TABLET (FOR DETOX USE ONLY) PO ONE (10:00)
[2020-04-02] MEDS ORDERED: LORazepam 0.5 MG TABLET PO PRN
[2020-04-02] MEDS ORDERED: LORazepam 0.5 MG TABLET PO SCH (05:00)
[2020-04-02] MEDS ORDERED: METHADONE (DETOX) 10 MG, METHADONE (DETOX) 5 MG PO ONE (10:00)
[2020-04-03] MEDS ORDERED: LORazepam 0.5 MG TABLET PO ONE (05:00)
[2020-04-03] MEDS ORDERED: METHADONE HCL 10 MG TABLET (FOR DETOX USE ONLY) PO ONE (10:00)
[2020-04-04] MEDS ORDERED: METHADONE HCL 5 MG TABLET (FOR DETOX USE ONLY) PO ONE (06:00)
== END 2020-03-31 16:56 | disposition left against medical advice (07) | DRG 773 ==
LOC: YASAS 09:55 → Y6N 13:07
PROVIDERS: ADMIT Allergy & Immunology; ATTEND Allergy & Immunology
PROC: HZ2ZZZZ Detoxification Services for Substance Abuse Treatment (ICD-10-PCS; principal; 2020-03-30)
DX: F11.23 Opioid dependence with withdrawal (principal); F13.230 Sedative, hypnotic or anxiolytic dependence with withdrawal, uncomplicated; F16.20 Hallucinogen dependence, uncomplicated; F17.210 Nicotine dependence, cigarettes, uncomplicated; F19.282 Other psychoactive substance dependence with psychoactive substance-induced sleep disorder; F41.9 Anxiety disorder, unspecified; J45.20 Mild intermittent asthma, uncomplicated; G47.00 Insomnia, unspecified
CPT/HCPCS: 36415; 80053; 85027; 86780; 87389; J0735; Q0162; U0003

== ENCOUNTER 2021-01-28 09:38 | Inpatient (IN) | payer OTHER ==
[2021-01-28 10:37] VITALS: BMI 28.3
[2021-01-28] MEDS ORDERED: BISMUTH SUBSALICYLATE 524 MG/30 ML UD PO PRN (11:33)
[2021-01-28] MEDS ORDERED: MAGNESIUM CITRATE 300 ML BOTTLE PO PRN (11:33)
[2021-01-28] MEDS ORDERED: IBUPROFEN 400 MG TABLET (FP) PO PRN (11:33)
[2021-01-28] MEDS ORDERED: MAG HYDROX/AL HYDROX/SIMETH 30 ML UNIT-DOSE CUP PO PRN (11:33)
[2021-01-28] MEDS ORDERED: ONDANSETRON *ODT* 4 MG TABLET SL PRN (11:33)
[2021-01-28] MEDS ORDERED: MAGNESIUM HYDROX 2400MG/30ML ORAL SUSPENSION 30 ML CUP PO PRN (11:33)
[2021-01-28] MEDS ORDERED: ACETAMINOPHEN 325 MG TABLET (FP) PO PRN ×2 (11:33)
[2021-01-28] MEDS ORDERED: MENTHOL/PHENOL 1 EACH UD MM PRN (11:33)
[2021-01-28] MEDS ORDERED: hydrOXYzine PAMOATE 25 MG CAPSULE (FP) PO ONE (13:13)
[2021-01-28] MEDS: hydrOXYzine PAMOATE 25 MG CAPSULE (FP) PO SCH ×3 (13:15→22:35)
[2021-01-28] MEDS: MELATONIN 5 MG TABLETS PO SCH (22:35)
[2021-01-28] MEDS: THIAMINE HCL 100 MG TABLET (FP) PO SCH (22:35)
[2021-01-28] MEDS: METHOCARBAMOL 500 MG TABLET PO PRN (22:35)
[2021-01-29] MEDS: hydrOXYzine PAMOATE 25 MG CAPSULE (FP) PO SCH ×5 (05:49→22:28)
[2021-01-29] MEDS: PRENATAL VITAMINS W/ FOLIC ACID TABLET (FP) PO SCH (10:28)
[2021-01-29] MEDS: METHOCARBAMOL 500 MG TABLET PO PRN (10:30)
[2021-01-29] MEDS ORDERED: METHADONE HCL 10 MG TABLET (FOR DETOX USE ONLY) PO ONE (10:36)
[2021-01-29] MEDS ORDERED: diazePAM 5 MG TABLET PO PRN ×2 (10:36→10:39)
[2021-01-29] MEDS ORDERED: cloNIDine HCL 0.1 MG TABLET PO PRN (10:36)
[2021-01-29 10:40] LABS: HEMATOCRIT 35.4 % (35.4-49); HEMOGLOBIN 12.1 GM/dL (11.7-16.9); MCH 29.4 pg (25.7-33.7); MCHC 34.3 g/dl (32.0-35.9); MEAN CELL VOLUME 85.6 fl (80-96); MEAN PLT VOLUME 6.9 fl (7.5-11.1); PLATELET COUNT 233 K/MM3 (134-434); RBC 4.13 M/mm3 (4.00-5.60); RDW 12.8 % (11.9-15.9); WHITE BLOOD COUNT 6.7 K/mm3 (4.0-10.0)
[2021-01-29 10:50] LABS: ALBUMIN 3.4 g/dl (3.4-5.0); BLOOD UREA NITROGEN 15.9 mg/dL (7-18)
[2021-01-29 10:53] LABS: CREATININE 0.8 mg/dL (0.55-1.3)
[2021-01-29 10:54] LABS: BILIRUBIN,TOTAL 0.4 mg/dL (0.2-1); TOT PROT 7.1 g/dl (6.4-8.2)
[2021-01-29] MEDS: diazePAM 5 MG TABLET PO SCH ×3 (11:19→22:28)
[2021-01-29 11:43] LABS: HIV INTERPRETATION NEGATIVE (NEGATIVE)
[2021-01-29] MEDS: THIAMINE HCL 100 MG TABLET (FP) PO SCH (22:28)
[2021-01-29] MEDS: MELATONIN 5 MG TABLETS PO SCH (22:28)
[2021-01-30] MEDS: hydrOXYzine PAMOATE 25 MG CAPSULE (FP) PO SCH ×5 (05:24→22:34)
[2021-01-30] MEDS: diazePAM 5 MG TABLET PO SCH ×4 (05:24→22:33)
[2021-01-30] MEDS ORDERED: ALBUTEROL SO4 HFA INHALER IH PRN (09:07)
[2021-01-30] MEDS ORDERED: METHADONE HCL 5 MG TABLET (FOR DETOX USE ONLY) ONE (09:26)
[2021-01-30] MEDS ORDERED: METHADONE HCL 10 MG TABLET (FOR DETOX USE ONLY) ONE (09:27)
[2021-01-30] MEDS ORDERED: METHADONE (DETOX) 20 MG, METHADONE (DETOX) 5 MG PO ONE (10:00)
[2021-01-30] MEDS: PRENATAL VITAMINS W/ FOLIC ACID TABLET (FP) PO SCH (10:21)
[2021-01-30] MEDS: CEPHALEXIN MONOHYDRATE 500 MG CAPSULE (UD) PO SCH ×3 (11:48→23:20)
[2021-01-30] MEDS: BACITRACIN 0.9 GM PACKET TP SCH ×2 (11:48→22:33)
[2021-01-30] MEDS: THIAMINE HCL 100 MG TABLET (FP) PO SCH (22:32)
[2021-01-30] MEDS: MELATONIN 5 MG TABLETS PO SCH (22:33)
[2021-01-31] MEDS: hydrOXYzine PAMOATE 25 MG CAPSULE (FP) PO SCH ×2 (05:22→10:29)
[2021-01-31] MEDS: CEPHALEXIN MONOHYDRATE 500 MG CAPSULE (UD) PO SCH ×2 (05:22→11:13)
[2021-01-31] MEDS ORDERED: diazePAM 5 MG TABLET PO SCH (06:00)
[2021-01-31 09:34] VITALS: BP 145/77; PULSE 94; TEMP 97.3
[2021-01-31] MEDS ORDERED: METHADONE HCL 10 MG TABLET (FOR DETOX USE ONLY) PO ONE (10:00)
[2021-01-31] MEDS: BACITRACIN 0.9 GM PACKET TP SCH (10:29)
[2021-01-31] MEDS: PRENATAL VITAMINS W/ FOLIC ACID TABLET (FP) PO SCH (10:30)
[2021-01-31 14:07] LABS: SARS-CoV-2 NAA Not Detected (Not Detected)
[2021-02-01] MEDS ORDERED: diazePAM 5 MG TABLET PO SCH (06:00)
[2021-02-01] MEDS ORDERED: METHADONE (DETOX) 10 MG, METHADONE (DETOX) 5 MG PO ONE (10:00)
[2021-02-02] MEDS ORDERED: diazePAM 5 MG TABLET PO ONE (06:00)
[2021-02-02] MEDS ORDERED: METHADONE HCL 10 MG TABLET (FOR DETOX USE ONLY) PO ONE (10:00)
[2021-02-03] MEDS ORDERED: METHADONE HCL 5 MG TABLET (FOR DETOX USE ONLY) PO ONE (06:00)
== END 2021-01-31 11:56 | disposition left against medical advice (07) | DRG 770 ==
LOC: YASAS 09:38 → Y6N 15:29 → UNDOADMIN 15:29
PROVIDERS: ADMIT Allergy & Immunology; ATTEND Allergy & Immunology
PROC: HZ2ZZZZ Detoxification Services for Substance Abuse Treatment (ICD-10-PCS; principal; 2021-01-28)
DX: F11.23 Opioid dependence with withdrawal (principal); F13.230 Sedative, hypnotic or anxiolytic dependence with withdrawal, uncomplicated; J45.20 Mild intermittent asthma, uncomplicated; L03.113 Cellulitis of right upper limb; M54.5 Low back pain; G89.29 Other chronic pain; Z87.891 Personal history of nicotine dependence
CPT/HCPCS: 36415; 80053; 85027; 86780; 87389; C9803; U0003; U0005